=== PATIENT | female | born 1945 | race Caucasian/White ===

== ENCOUNTER 2020-11-08 20:25 | Observation (INO) ==
--- NOTE | 2020-11-08 21:35 | XRay Report ---
XR chest 1V portable CLINICAL HISTORY: Chest Pain COMPARISON STUDY: Chest radiograph January 18, 2019. FINDINGS: Bilateral shoulder arthroplasties are incidentally noted. There is no pneumothorax or pleur al effusion. Right hilar prominence is unchanged. Cardiac size is normal. There is no evidence for pu lmonary edema. There is no consolidation to suggest pneumonia. IMPRESSION: No acute cardiopulmonary findings. ACT 112: Negative or not required by law. Electronically signed by: Kade Shearer M.D. 11/08/2020 9:34 PM
[2020-11-08 21:41] LABS: Basophils # (auto) 0.02 K/uL (0-0.2); Basophils % (auto) 0.2 %; Eosinophils # (auto) 0.11 K/uL (0-0.5); Eosinophils % (auto) 0.9 %; Hematocrit (blood only) 40.2 % (37-47); Hemoglobin 13.3 g/dL (12.0-16.0); Immature Granulocytes # (auto) 0.02 K/uL (0.00-0.02); Immature Granulocytes % (auto) 0.2 %; Lymphocytes # (auto) 1.95 K/uL (1.2-3.4); Lymphocytes % (auto) 16.4 %; Mean Corpuscular Hemoglobin 29.6 pg (25-34); Mean Corpuscular Hgb Conc 33.1 g/dL (32-36); Mean Corpuscular Volume 89.5 fL (80-100); Mean Platelet Volume 10.1 fL (7.4-10.4); Monocytes # (auto) 0.58 K/uL (0.11-0.59); Monocytes % (auto) 4.9 %; Neutrophils % (auto) 77.4 %; Platelet Count 258 K/uL (130-400); RDW Coefficient of Variation 13.2 % (11.5-14.5); RDW Standard Deviation 42.9 fL (36.4-46.3); Red Blood Count 4.49 M/uL (4.2-5.4); White Blood Count 11.88 K/uL (4.8-10.8)
[2020-11-08 21:54] LABS: Partial Thromboplastin Time 25.2 Seconds (21.0-31.0); Prothrombin Time 9.9 Seconds (9.0-12.0)
[2020-11-08 22:02] LABS: Alanine Aminotransferase 17 U/L (12-78); Albumin Level 3.5 gm/dl (3.4-5.0); Aspartate Aminotransferase 16 U/L (15-37); BUN Creatinine Ratio 12.5 (10-20); Blood Urea Nitrogen 13 mg/dl (7-18); Calcium 9.1 mg/dl (8.5-10.1); Carbon Dioxide 28 mmol/L (21-32); Chloride 109 mmol/L (98-107); Creatinine Clr Calc Pharmacy 55.2 ml/min; Est GFR (African American) 62.6 ml/min; Glucose 128 mg/dl (70-99); Sodium 141 mmol/L (136-145)
[2020-11-08 22:04] LABS: Albumin Globulin Ratio 0.8 (0.9-2); Alkaline Phosphatase 161 U/L (45-117); Bilirubin,Total 0.4 mg/dl (0.2-1); Globulin 4.2 gm/dl (2.5-4.0); Total Protein 7.7 gm/dl (6.4-8.2); Troponin I < 0.015 ng/ml (0-0.045)
--- NOTE | 2020-11-08 22:46 | Emergency Department Note ---
Impression & Plan Chest pain ED Provider Note INFORMANT: Patient ED PROVIDER(S): Azael Jorge MD CHIEF COMPLAINT: Chest pain PLAN: Disposition: Admitted Condition: Good Outpatient prescription management: none Referral: None MEDICAL DECISION MAKING: Patient presented to hospital complaining of chest pain. She has a history of Takotsubo cardiomyopathy. The patient had significant stress today with the of her . Her ECG did not show any acute ischemic findings. She has an old left bundle branch block. The patient did have a slight leukocytosis. She has no abdominal symptoms. Chest x-ray was unremarkable. The patient was given Nitropaste. She was also very anxious and was given a dose of Ativan. I discussed further management in the hospital. Patient was in agreement. Consultation was made with Dr. Sigifredo Rossi, [facility] hospitalist service. Patient was evaluated in the ER for further management. Triage Nursing notes reviewed and agree them. Vital Signs: reviewed and remarkable for hypertension Differential diagnosis: Cardiac ischemia, aortic dissection, pulmonary embolism, pneumothorax, pneumonia, pericarditis, myocarditis, esophageal rupture, GERD, cholecystitis, pancreatitis, musculoskeletal, as well as other pathologies. Diagnostics interpreted by me: ECG: Twelve-lead ECG reveals a normal sinus rhythm at 86 bpm. Left bundle branch block. No ST elevation or depression to suggest acute ischemic change. When compared to prior study of the aorta branch block is old. Cardiac Monitoring: Cardiac monitoring ordered by me: The patient was placed on continuous cardiac monitoring and observed. It revealed a normal sinus rhythm at 82 beats per minute without ectopy or evidence of dysrhythmia. Imaging studies: Chest x-ray. Findings: A chest x-ray was performed and revealed no pneumothorax, effusion, infiltrate, pulmonary edema, free air under the diaphragm, or wide mediastinum. Impression: No acute disease. HPI: The patient is a 75 year old female who presents to the Emergency Room with complaints of midsternal chest pain. This started at 1930 and is somewhat improved. The patient also notes the following associated symptoms, stress, anxious. The patient has taken no medications for relieving factors. Current pain is rated as 4/10. Pt denies LOC, headache, fevers, chills, diaphoresis, visual changes, neck pain, breathing difficulties, nausea, vomiting, abdominal pain, back pain, melena, hematochezia, urinary symptoms, numbness, weakness, lymphadenopathy, rash, or other complaints. ROS: See above HPI for pertinent positives & negatives. A total of 10 systems reviewed and were otherwise negative. PAST MEDICAL HISTORY:See Below , Cardiomyopathy PAST SURGICAL HISTORY:See Below, FAMILY HISTORY:See Below SOCIAL HISTORY:See Below, HOME MEDICATIONS:See Below ALLERGIES:See Below VITALS:See Below PHYSICAL EXAMINATION: GENERAL: Awake, alert, well-appearing, in no distress HENT: Normocephalic, atraumatic. Oropharynx unremarkable. EYES: Normal conjunctiva. Sclera non-icteric. NECK: Inspection normal. Non-tender. Supple. No nuchal rigidity. FROM. No masses. RESPIRATORY: Clear to auscultation. No wheezes. No rales. Normal respiratory effort. CARDIAC: Normal rate. Normal rhythm. No murmurs. No rubs. Extremities warm and well perfused. Pulses equal. No JVD. GI: Soft, non-distended. No tenderness to palpation. No rebound or guarding. No masses. RECTAL: Deferred. MUSCULOSKELETAL: Atraumatic. Chest examination reveals no tenderness. The back is symmetrical on inspection without obvious abnormality. There is no CVA tenderness to palpation. No joint edema. LOWER EXTREMITIES: Calves are equal size bilaterally and non-tender. No edema. No discoloration. NEURO: Normal sensorium. No sensory or motor deficits noted. SKIN: No rash or jaundice noted. Azael Jorge MD Past Med/Surg History Medical History (Updated 11/08/20 @ 22:46 by Azael Jorge MD) Amputation finger LEFT INDEX CHF (congestive heart failure) COPD (chronic obstructive pulmonary disease) Diverticulosis GERD (gastroesophageal reflux disease) Gout Hearing deficit Hypertension Kidney stones Osteoarthritis Poor historian Pulmonary hypertension Sleep apnea CPAP Takotsubo syndrome Surgical History History of ankle surgery RT History of cardiac cath 2007- [facility] - CP, SOB - NO STENTS/ANGIOPLASTY - FOLLOWS W/ DR. SLATER History of hand surgery History of tonsillectomy and adenoidectomy History of total knee replacement RT History of total shoulder replacement BL Family History Father Family history of diabetes mellitus Grandmother Family history of diabetes mellitus Social History Smoking Status: Never smoker Second Hand Exposure: Yes (OCCASIONALLY - DTR SMOKES (ALSO EXPOSED A CHILD)); Hx Alcohol Use: Yes Alcohol type: wine Hx Substance Use: No Preferred Language: Divehi Communication Ability: Effective Beliefs That Will Affect Care: None Current Living Situation: Spouse and Family Feels Safe at Home: Yes Allergies Allergies Allergy/AdvReac Type Severity Reaction Status Date / Time blue dye Allergy Unknown itchy;swoll Verified 02/07/20 13:41 en chlorhexidine Allergy Unknown ITCHINESS Verified 02/07/20 13:41 Penicillins Allergy Unknown HIVES Verified 02/07/20 13:41 Home Meds Home Medications Medication Instructions Recorded Confirmed allopurinol 300 mg tablet 300 mg PO DAILY 01/19/18 02/07/20 alprazolam 0.25 mg tablet 0.25 mg PO TID 01/19/18 02/07/20 aspirin 81 mg tablet,delayed 81 mg PO DAILY 01/19/18 02/07/20 release calcium polycarbophil 625 mg 4 tab PO QID 01/19/18 02/07/20 tablet (Fiber-Tabs) carvedilol 12.5 mg tablet 12.5 mg PO BID 01/19/18 02/07/20 furosemide 40 mg tablet 40 mg PO BID 01/19/18 02/07/20 gabapentin 600 mg tablet 600 mg PO BID 01/19/18 02/07/20 lisinopril 2.5 mg tablet 2.5 mg PO DAILY 01/19/18 02/07/20 loperamide 2 mg capsule (Imodium 0.5 tab PO Q3H PRN 01/19/18 02/07/20 A-D) mirtazapine 30 mg tablet 30 mg PO HS 01/19/18 02/07/20 potassium chloride 10 mEq 20 meq PO BID 01/19/18 02/07/20 tablet,extended release ranitidine HCl 300 mg tablet 300 mg PO BID 01/19/18 02/07/20 spironolactone 25 mg tablet 25 mg PO DAILY 01/19/18 02/07/20 venlafaxine 75 mg capsule,extended 75 mg PO DAILY 01/19/18 02/07/20 release 24 hr Previous Rx's Medication Instructions Recorded hydrocodone 5 mg-acetaminophen 300 1 tab PO Q8H PRN #7 tab 01/18/19 mg tablet (Vicodin) Results & Data (ED) Vital Signs Vital Signs - 24 hr 11/08/20 20:27 11/08/20 22:28 11/08/20 23:00 Temperature 36.6 C Temperature Source Temporal Artery Scan Pulse Rate 85 Pulse Rate [Right Finger] 82 Pulse Rhythm Regular Pulse Strength Normal Respiratory Rate 20 20 Respiratory Effort / Characteristics Non-Labored Spontaneous Non-Labored Spontaneous Respiratory Depth Normal Normal Respiratory Pattern Regular Blood Pressure 188/84 H Blood Pressure [Right Arm] 165/80 H Blood Pressure Mean 118 Blood Pressure Mean [Right Arm] 108 Blood Pressure Position Sitting Blood Pressure Position [Right Arm] Sitting Pulse Oximetry 95 97 Oxygen Delivery Method Room Air Room Air Room Air Sepsis Recent Fever Within 48 Hours No Sepsis New/Unexplained Change in Mental Status No Sepsis Action Taken by Nursing No Action Required Laboratory Data Result diagrams: 11/08/20 21:25 11/08/20 21:25 Lab Results 11/08/20 11/08/20 11/08/20 Range/Units 21:25 21:25 21:25 WBC 11.88 H (4.8-10.8) K/uL RBC 4.49 (4.2-5.4) M/uL Hgb 13.3 (12.0-16.0) g/dL Hct 40.2 (37-47) % MCV 89.5 (80-100) fL MCH 29.6 (25-34) pg MCHC 33.1 (32-36) g/dL RDW Std Deviation 42.9 (36.4-46.3) fL RDW Coeff of Marj 13.2 (11.5-14.5) % Plt Count 258 (130-400) K/uL MPV 10.1 (7.4-10.4) fL Immature Gran % (Auto) 0.2 % Neut % (Auto) 77.4 % Lymph % (Auto) 16.4 % [place] % (Auto) 4.9 % Eos % (Auto) 0.9 % Baso % (Auto) 0.2 % Neut # (Auto) 9.20 H (1.4-6.5) K/uL Lymph # (Auto) 1.95 (1.2-3.4) K/uL [place] # (Auto) 0.58 (0.11-0.59) K/uL Eos # (Auto) 0.11 (0-0.5) K/uL Baso # (Auto) 0.02 (0-0.2) K/uL Immature Gran # (Auto) 0.02 (0.00-0.02) K/uL PT 9.9 (9.0-12.0) Seconds INR 1.0 (0.9-1.1) APTT 25.2 (21.0-31.0) Seconds PTT Ratio 1.0 Sodium 141 (136-145) mmol/L Potassium 4.0 (3.5-5.1) mmol/L Chloride 109 H (98-107) mmol/L Carbon Dioxide 28 (21-32) mmol/L Anion Gap 4.0 (3-11) BUN 13 (7-18) mg/dl Creatinine 1.01 (0.6-1.2) mg/dl Est Cr Clr Drug Dosing 55.2 ml/min Est GFR ( Amer) 62.6 ml/min Est GFR (Non-Af Amer) 54.0 ml/min BUN/Creatinine Ratio 12.5 (10-20) Glucose 128 H (70-99) mg/dl Calcium 9.1 (8.5-10.1) mg/dl Magnesium 2.2 (1.8-2.4) mg/dl Total Bilirubin 0.4 (0.2-1) mg/dl AST 16 (15-37) U/L ALT 17 (12-78) U/L Alkaline Phosphatase 161 H (45-117) U/L Troponin I < 0.015 (0-0.045) ng/ml Total Protein 7.7 (6.4-8.2) gm/dl Albumin 3.5 (3.4-5.0) gm/dl Globulin 4.2 H (2.5-4.0) gm/dl Albumin/Globulin Ratio 0.8 L (0.9-2) Lipase 195 (73-393) U/L Specimen Hemolysis COVID-19 Eval Order SARS-CoV-2 (PCR) (Negative) 11/08/20 11/08/20 Range/Units 22:58 22:58 WBC (4.8-10.8) K/uL RBC (4.2-5.4) M/uL Hgb (12.0-16.0) g/dL Hct (37-47) % MCV (80-100) fL MCH (25-34) pg MCHC (32-36) g/dL RDW Std Deviation (36.4-46.3) fL RDW Coeff of Marj (11.5-14.5) % Plt Count (130-400) K/uL MPV (7.4-10.4) fL Immature Gran % (Auto) % Neut % (Auto) % Lymph % (Auto) % [place] % (Auto) % Eos % (Auto) % Baso % (Auto) % Neut # (Auto) (1.4-6.5) K/uL Lymph # (Auto) (1.2-3.4) K/uL [place] # (Auto) (0.11-0.59) K/uL Eos # (Auto) (0-0.5) K/uL Baso # (Auto) (0-0.2) K/uL Immature Gran # (Auto) (0.00-0.02) K/uL PT (9.0-12.0) Seconds INR (0.9-1.1) APTT (21.0-31.0) Seconds PTT Ratio Sodium (136-145) mmol/L Potassium (3.5-5.1) mmol/L Chloride (98-107) mmol/L Carbon Dioxide (21-32) mmol/L Anion Gap (3-11) BUN (7-18) mg/dl Creatinine (0.6-1.2) mg/dl Est Cr Clr Drug Dosing ml/min Est GFR ( Amer) ml/min Est GFR (Non-Af Amer) ml/min BUN/Creatinine Ratio (10-20) Glucose (70-99) mg/dl Calcium (8.5-10.1) mg/dl Magnesium (1.8-2.4) mg/dl Total Bilirubin (0.2-1) mg/dl AST (15-37) U/L ALT (12-78) U/L Alkaline Phosphatase (45-117) U/L Troponin I (0-0.045) ng/ml Total Protein (6.4-8.2) gm/dl Albumin (3.4-5.0) gm/dl Globulin (2.5-4.0) gm/dl Albumin/Globulin Ratio (0.9-2) Lipase (73-393) U/L Specimen Hemolysis COVID-19 Eval Order Covid19 at [facility] SARS-CoV-2 (PCR) NEGATIVE (Negative) Administered Medications Discontinued Medications Lorazepam (Lorazepam 0.5 Mg Tab) 0.5 mg PO NOW STA Stop: 11/08/20 22:48 Last Admin: 11/08/20 22:57 Dose: 0.5 mg Documented by: [id number] Nitroglycerin (Nitroglycerin 2% Ointment 30gm Tube) 0.5 inch EXT NOW STA Stop: 11/08/20 22:48 Last Admin: 11/08/20 22:57 Dose: 0.5 inch Documented by: [id number] Imaging Data Radiologist's Impression: Chest X-Ray 11/08/20 20:36 XR chest 1V portable CLINICAL HISTORY: Chest Pain COMPARISON STUDY: Chest radiograph January 18, 2019. FINDINGS: Bilateral shoulder arthroplasties are incidentally noted. There is no pneumothorax or pleural effusion. Right hilar prominence is unchanged. Cardiac size is normal. There is no evidence for pulmonary edema. There is no consolidation to suggest pneumonia. IMPRESSION: No acute cardiopulmonary findings. ACT 112: Negative or not required by law. Electronically signed by: Kade Shearer M.D. 11/08/2020 9:34 PM Discharge Plan Visit Data Chief Complaint: Chest Pain Stated Complaint: TIGHTNESS IN CHEST ED Provider: Azael Jorge Discharge Problem: Chest pain Forms Stand Alone Forms: My [facility] Prescriptions Prescriptions: No Action furosemide 40 mg Tablet 40 mg PO BID RF: 0 venlafaxine 75 mg Capsule,Extended Release 24hr 75 mg PO DAILY RF: 0 gabapentin 600 mg Tablet 600 mg PO BID RF: 0 carvedilol 12.5 mg Tablet 12.5 mg PO BID RF: 0 ranitidine HCl 300 mg Tablet 300 mg PO BID RF: 0 potassium chloride 10 mEq Tablet Extended Release 20 meq PO BID RF: 0 aspirin 81 mg Tablet,Delayed Release (Dr/Ec) 81 mg PO DAILY RF: 0 spironolactone 25 mg Tablet 25 mg PO DAILY RF: 0 alprazolam 0.25 mg Tablet 0.25 mg PO TID RF: 0 mirtazapine 30 mg Tablet 30 mg PO HS RF: 0 calcium polycarbophil [Fiber-Tabs] 625 mg Tablet 4 tab PO QID RF: 0 allopurinol 300 mg Tablet 300 mg PO DAILY RF: 0 lisinopril 2.5 mg Tablet 2.5 mg PO DAILY RF: 0 loperamide [Imodium A-D] 2 mg Capsule 0.5 tab PO Q3H PRN (Reason: Diarrhea) RF: 0 hydrocodone-acetaminophen [Vicodin] 5-300 mg tablet 1 tab PO Q8H PRN (Reason: pain) Qty: 7 RF: 0 Referrals Referrals: Bradley Ruiz MD [Primary Care Provider] -
[2020-11-08] MEDS ORDERED: NITROGLYCERIN 2% OINTMENT 30GM TUBE EXT STA (22:47)
[2020-11-08] MEDS ORDERED: LORazepam 0.5 MG TAB PO STA (22:47)
[2020-11-08 23:35] LABS: Lipase 195 U/L (73-393); Magnesium 2.2 mg/dl (1.8-2.4)
[2020-11-09] MEDS ORDERED: carvediloL 12.5 MG TAB PO ONE (00:07)
[2020-11-09] MEDS ORDERED: lisinopril 5 MG TAB PO ONE (00:07)
--- NOTE | 2020-11-09 00:08 | History & Physical Report ---
Date of Service November 09, 2020 Assessment & Plan (1) Chest pain: Plan: Multifactorial : Uncontrolled hypertension secondary to missed medications, anxiety given recent family Musculoskeletal component given reproducibility Rule out ACS given nitro relief chronic diastolic heart failure (EF 55 to 59%, TTE 2018), euvolemic history Takotsubo cardiomyopathy as per records chronic LBBB hyperlipidemia on statin Rx prediabetes, hemoglobin A1c of 6.24 June 2020 OBS PCU Analgesia, anxiolytic as needed Facilitate home BP meds, may need dose titration Follow troponin TTE, Cardiology consult RE chest pain DVT prophylaxis per Lovenox subcu Full code Patient daughter requesting updates from providers. Ms. Luann Ambrosio, contact #[phone]. Text document was generated using [employer] voice recognition software. It may contain grammatical or spelling errors. Kindly contact undersigned for clarification of any documentation item in question. History of Present Illness Chief Complaint: Chest tightness Primary Care Provider: Bradley Ruiz MD History obtained from patient, family, and records. Medical history significant for chronic diastolic heart failure (EF 55 to 59%, TTE 2018), history Takotsubo cardiomyopathy as per records, chronic LBBB, hypertension, hyperlipidemia, prediabetes, ANAYA on CPAP. Last confinement August 2015 under Orthopedics service for elective right total shoulder arthroplasty. Patient noted substernal chest tightness without radiation or other symptoms around dinnertime today. Stressful day with patient 's demise at the hospital yesterday morning. Patient unable to take her home medications because she was not feeling well. No headache symptoms. No unusual fluid retention. Usual blood pressure controlled at home. Noncompliant with CPAP of late because patient's could not sleep when CPAP is on. Chest pain relieved by Nitropaste and Ativan administered at the ER. Medical History as above Surgical History : Knee surgery, breast biopsy, shoulder surgeries Family History : DM, heart disease Personal/Social history : Non-smoker, occasional EtOH intake, retired pick pack worker Allergies Allergy/AdvReac Type Severity Reaction Status Date / Time blue dye Allergy Unknown itchy;swoll Verified 02/07/20 13:41 en chlorhexidine Allergy Unknown ITCHINESS Verified 02/07/20 13:41 Penicillins Allergy Unknown HIVES Verified 02/07/20 13:41 Home Medications Medication Instructions Recorded Confirmed Type allopurinol 300 mg tablet 300 mg PO DAILY 01/19/18 11/09/20 History alprazolam 0.25 mg tablet 0.25 mg PO TID PRN 01/19/18 11/09/20 History aspirin 81 mg tablet,delayed 81 mg PO DAILY 01/19/18 11/09/20 History release carvedilol 12.5 mg tablet 12.5 mg PO BID 01/19/18 11/09/20 History furosemide 40 mg tablet 40 mg PO BID 01/19/18 11/09/20 History gabapentin 600 mg tablet 600 mg PO BID 01/19/18 11/09/20 History lisinopril 2.5 mg tablet 2.5 mg PO DAILY 01/19/18 11/09/20 History loperamide 2 mg capsule (Imodium 0.5 tab PO Q3H PRN 01/19/18 11/09/20 History A-D) mirtazapine 30 mg tablet 30 mg PO HS 01/19/18 11/09/20 History potassium chloride 10 mEq 20 meq PO BID 01/19/18 11/09/20 History tablet,extended release spironolactone 25 mg tablet 25 mg PO DAILY 01/19/18 11/09/20 History venlafaxine 75 mg capsule,extended 150 mg PO DAILY 01/19/18 11/09/20 History release 24 hr famotidine 40 mg PO BID 11/09/20 11/09/20 History Past Med/Surg History Medical History (Updated 11/08/20 @ 22:46 by Azael Jorge MD) Amputation finger LEFT INDEX CHF (congestive heart failure) COPD (chronic obstructive pulmonary disease) Diverticulosis GERD (gastroesophageal reflux disease) Gout Hearing deficit Hypertension Kidney stones Osteoarthritis Poor historian Pulmonary hypertension Sleep apnea CPAP Takotsubo syndrome Surgical History History of ankle surgery RT History of cardiac cath 2007- [facility] - CP, SOB - NO STENTS/ANGIOPLASTY - FOLLOWS W/ DR. SLATER History of hand surgery History of tonsillectomy and adenoidectomy History of total knee replacement RT History of total shoulder replacement BL Family History Father Family history of diabetes mellitus Grandmother Family history of diabetes mellitus Social History Smoking Status: Unknown if ever smoked Second Hand Exposure: Yes (OCCASIONALLY - DTR SMOKES (ALSO EXPOSED A CHILD)); Hx Alcohol Use: No Hx Substance Use: No Preferred Language: Maltese Communication Ability: Effective [employer]ian [employer] Officer Required: No Beliefs That Will Affect Care: None Current Living Situation: Alone Other Information That Helps Us Care for You: No Feels Safe at Home: Yes Safety Concerns: Feels Safe At This Time Assistive Devices: None Review of Systems Review of Systems: As per HPI, all 10 systems reviewed, all other ROS negative Physical Exam Physical Exam: GENERAL: Comfortable, slightly anxious, obese, slightly hard of hearing, no res piratory distress SKIN: Normal color, warm HEENT: [place] palpebral conjunctivae, no ptosis, moist buccal mucosa NECK : Supple, short neck, no tenderness CHEST : CTA, anterior chest wall tenderness HEART : RRR, no obvious murmurs ABDOMEN: Some distention, nontender EXTREMITIES : Minimal LE swelling, no LE tenderness, no other conspicuous deformities noted NEUROLOGIC : Coherent, no facial asymmetry, slightly hard of hearing, no other gross focality Results & Data Results & Data ([facility]) Vital Signs (Past 12 Hours) Vital Signs Temp Pulse Pulse Resp BP BP Pulse Ox 11/08/20 23:00 82 20 165/80 H 97 11/08/20 20:27 36.6 C 85 20 188/84 H 95 Laboratory Results Laboratory Results WBC 11.88 K/uL (4.8-10.8) H 11/08/20 21:25 RBC 4.49 M/uL (4.2-5.4) 11/08/20 21:25 Hgb 13.3 g/dL (12.0-16.0) 11/08/20 21:25 Hct 40.2 % (37-47) 11/08/20 21:25 MCV 89.5 fL (80-100) 11/08/20 21:25 MCH 29.6 pg (25-34) 11/08/20 21:25 MCHC 33.1 g/dL (32-36) 11/08/20 21:25 RDW Std Deviation 42.9 fL (36.4-46.3) 11/08/20 21:25 RDW Coeff of Marj 13.2 % (11.5-14.5) 11/08/20 21:25 Plt Count 258 K/uL (130-400) 11/08/20 21:25 MPV 10.1 fL (7.4-10.4) 11/08/20 21:25 Immature Gran % (Auto) 0.2 % 11/08/20: Neut % (Auto) 77.4 % 11/08/20 21: Lymph % (Auto) 16.4 % 11/08/20 21: [place] % (Auto) 4.9 % 11/08/20 21: Eos % (Auto) 0.9 % 11/08/20 21:25 Baso % (Auto) 0.2 % 11/08/20: Neut # (Auto) 9.20 K/uL (1.4-6.5) H 11/08/20: Lymph # (Auto) 1.95 K/uL (1.2-3.4) 11/08/20: [place] # (Auto) 0.58 K/uL (0.11-0.59) 11/08/20: Eos # (Auto) 0.11 K/uL (0-0.5) 11/08/20: Baso # (Auto) 0.02 K/uL (0-0.2) 11/08/20: Immature Gran # (Auto) 0.02 K/uL (0.00-0.02) 11/08/20: PT 9.9 Seconds (9.0-12.0) 11/08/20: INR 1.0 (0.9-1.1) 11/08/20: APTT 25.2 Seconds (21.0-31.0) 11/08/20: PTT Ratio 1.0 11/08/20 21: Sodium 141 mmol/L (136-145) 11/08/20 21:25 Potassium 4.0 mmol/L (3.5-5.1) 11/08/20: Chloride 109 mmol/L (98-107) H 11/08/20 21:25 Carbon Dioxide 28 mmol/L (21-32) 11/08/20 21: Anion Gap 4.0 (3-11) 11/08/20 21:25 BUN 13 mg/dl (7-18) 07/16/21 21:25 Creatinine 1.01 mg/dl (0.6-1.2) 11/08/20 21:25 Est Cr Clr Drug Dosing 55.2 ml/min 11/08/20 21:25 Est GFR ( Amer) 62.6 ml/min 11/08/20 21:25 Est GFR (Non-Af Amer) 54.0 ml/min 11/08/20 21:25 BUN/Creatinine Ratio 12.5 (10-20) 11/08/20 21:25 Glucose 128 mg/dl (70-99) H 11/08/20 21:25 Calcium 9.1 mg/dl (8.5-10.1) 11/08/20 21:25 Magnesium 2.2 mg/dl (1.8-2.4) 11/08/20 21:25 Total Bilirubin 0.4 mg/dl (0.2-1) 11/08/20 21:25 AST 16 U/L (15-37) 11/08/20 21:25 ALT 17 U/L (12-78) 11/08/20 21:25 Alkaline Phosphatase 161 U/L (45-117) H 11/08/20 21:25 Troponin I < 0.015 ng/ml (0-0.045) 11/08/20 21:25 Total Protein 7.7 gm/dl (6.4-8.2) 11/08/20 21:25 Albumin 3.5 gm/dl (3.4-5.0) 11/08/20 21:25 Globulin 4.2 gm/dl (2.5-4.0) H 11/08/20 21:25 Albumin/Globulin Ratio 0.8 (0.9-2) L 11/08/20 21:25 Lipase 195 U/L (73-393) 11/08/20 21:25 Specimen Hemolysis 11/08/20 21:25 COVID-19 Eval Order Covid19 at [facility] 11/08/20 22:58 Impressions Chest X-Ray 11/08/20 20:36 XR chest 1V portable CLINICAL HISTORY: Chest Pain COMPARISON STUDY: Chest radiograph January 18, 2019. FINDINGS: Bilateral shoulder arthroplasties are incidentally noted. There is no pneumothorax or pleural effusion. Right hilar prominence is unchanged. Cardiac size is normal. There is no evidence for pulmonary edema. There is no consolidation to suggest pneumonia. IMPRESSION: No acute cardiopulmonary findings. ACT 112: Negative or not required by law. Electronically signed by: Kade Shearer M.D. 11/08/2020 9:34 PM Diagnostic Findings EKG as per my interpretation : Rate 85, NSR, LAD, LAFB, LBBB
[2020-11-09] MEDS ORDERED: ASPIRIN 81 MG ECTAB PO STA (00:09)
[2020-11-09] MEDS ORDERED: traMADol HCL 50 MG TABLET PO PRN (01:25)
[2020-11-09] MEDS ORDERED: MoRPHine SULFATE 4 MG/ML 1 ML CARP\\VIAL IV PRN (01:25)
[2020-11-09] MEDS ORDERED: LORazepam 0.25 MG/0.5 ML VIAL IV PRN (01:25)
[2020-11-09] MEDS ORDERED: NITROGLYCERIN SL 0.4 MG/TAB TAB SL PRN (01:25)
[2020-11-09] MEDS ORDERED: PROMETHAZINE HCL 12.5 MG in SODIUM CHLORIDE 0.9% 50 ML IV PRN (01:25)
[2020-11-09] MEDS ORDERED: ACETAMINOPHEN 325 MG TAB PO PRN (01:25)
[2020-11-09] MEDS ORDERED: MIRTAZAPINE TAB 15 MG TAB PO SCH (02:30)
[2020-11-09] MEDS ORDERED: ALPRAZolam 0.25 MG TABLET PO PRN (02:31)
[2020-11-09 06:35] LABS: Basophils # (auto) 0.01 K/uL (0-0.2); Basophils % (auto) 0.1 %; Eosinophils % (auto) 1.3 %; Hematocrit (blood only) 36.1 % (37-47); Hemoglobin 11.8 g/dL (12.0-16.0); Immature Granulocytes # (auto) 0.01 K/uL (0.00-0.02); Immature Granulocytes % (auto) 0.1 %; Lymphocytes # (auto) 1.52 K/uL (1.2-3.4); Lymphocytes % (auto) 19.4 %; Mean Corpuscular Hemoglobin 29.9 pg (25-34); Mean Corpuscular Hgb Conc 32.7 g/dL (32-36); Mean Corpuscular Volume 91.4 fL (80-100); Mean Platelet Volume 9.8 fL (7.4-10.4); Monocytes # (auto) 0.27 K/uL (0.11-0.59); Monocytes % (auto) 3.5 %; Neutrophils # (auto) 5.91 K/uL (1.4-6.5); Neutrophils % (auto) 75.6 %; Platelet Count 208 K/uL (130-400); RDW Coefficient of Variation 13.2 % (11.5-14.5); RDW Standard Deviation 44.5 fL (36.4-46.3); Red Blood Count 3.95 M/uL (4.2-5.4); White Blood Count 7.82 K/uL (4.8-10.8)
[2020-11-09 06:49] LABS: Partial Thromboplastin Ratio 0.9; Partial Thromboplastin Time 24.5 Seconds (21.0-31.0)
[2020-11-09 07:04] LABS: BUN Creatinine Ratio 11.9 (10-20); Creatinine Clr Calc Pharmacy 67.3 ml/min; Est GFR (African American) 79.4 ml/min; Est GFR (Non-African American) 68.5 ml/min; Potassium 3.7 mmol/L (3.5-5.1)
--- NOTE | 2020-11-09 08:48 | Cardiology Consultation ---
Date of Consultation November 09, 2020 Assessment & Plan (1) Chest pain: Patient feels improved. She notes that she understandably felt a lot of stress yesterday. Serial troponin I levels have been undetectable, her left bundle branch block is chronic, and echocardiogram performed earlier today reveals stable findings of mildly abnormal septal motion consistent with left bundle branch block with normal LV wall motion otherwise. I believe the her work-up is very reassuring. Patient feels ready to be discharged and I think this can be performed without the need for stress testing at present. History of Present Illness Reason for Consultation: Chest pain Requesting Physician: Dr Rossi Attending Physician: Sonido Boucher MD History of Present Illness Jaycee Ambrosio is a 75-year-old female seen in cardiology consultation per the request of Dr. Rossi for the evaluation of chest discomfort. She follows with our cardiology practice as an outpatient due to her history of Takosubo syndrome and chronic left bundle branch block. Her most recent outpatient visit had been in December, at which time stable cardiac signs and symptoms were noted. She presented via the emergency room yesterday with chest discomfort, with her having just yesterday morning after a long illness. She had chest discomfort with her evening meal that has since resolved. Troponin I levels have been undetectable x3 thus far. EKG on presentation revealed sinus rhythm with left bundle branch block. T wave changes in the lateral precordial leads are slightly more prominent compared to the previous tracing dating back to 2018. Past Medical/Surgical History: 1.Admission to [facility] in October 2007 secondary to chest discomfort and dyspnea. 1.Elevated cardiac enzymes and a left bundle branch block lead to cardiac catheterization which revealed elevated left and right heart pressures without obstructive CAD. 2.Echocardiography revealed apical expansion with left ventricular ejection fraction of 35% reflecting underlying cardiomyopathy - pattern of Takotsubo Syndrome. 3.Follow-up echocardiograms have revealed normal LVEF 2.Chronic left bundle branch block 3.Chronic diastolic heart failure. 4.Hypertension 5.Chronic sleep apnea 6.COPD with past secondary hand smoke exposure 7.Chronic kidney disease, stage III. 8.Gastroesophageal reflux 9.Irritable bowel syndrome 10.Diverticulosis of the colon 11.Neuralgia. Neuropathy, on gabapentin. 12.Osteoarthritis s/p left shoulder replacement in November 2011, right total knee replacement by Dr. Braun on 05/25/2014. 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 -Her most recent outpatient echocardiogram had been in 2018 with abnormal septal motion consistent with underlying left bundle branch block, grade 1 diastolic dysfunction, normal LVEF, 55 to 59%. Allergies Allergy/AdvReac Type Severity Reaction Status Date / Time blue dye Allergy Unknown itchy;swoll Verified 02/07/20 13:41 en chlorhexidine Allergy Unknown ITCHINESS Verified 02/07/20 13:41 Penicillins Allergy Unknown HIVES Verified 02/07/20 13:41 Home Medications Medication Instructions Recorded Confirmed Type allopurinol 300 mg tablet 300 mg PO DAILY 01/19/18 11/09/20 History alprazolam 0.25 mg tablet 0.25 mg PO TID PRN 01/19/18 11/09/20 History aspirin 81 mg tablet,delayed 81 mg PO DAILY 01/19/18 11/09/20 History release carvedilol 12.5 mg tablet 12.5 mg PO BID 01/19/18 11/09/20 History furosemide 40 mg tablet 40 mg PO BID 01/19/18 11/09/20 History gabapentin 600 mg tablet 600 mg PO BID 01/19/18 11/09/20 History lisinopril 2.5 mg tablet 2.5 mg PO DAILY 01/19/18 11/09/20 History loperamide 2 mg capsule (Imodium 0.5 tab PO Q3H PRN 01/19/18 11/09/20 History A-D) mirtazapine 30 mg tablet 30 mg PO HS 01/19/18 11/09/20 History potassium chloride 10 mEq 20 meq PO BID 01/19/18 11/09/20 History tablet,extended release spironolactone 25 mg tablet 25 mg PO DAILY 01/19/18 11/09/20 History venlafaxine 75 mg capsule,extended 150 mg PO DAILY 01/19/18 11/09/20 History release 24 hr famotidine 40 mg PO BID 11/09/20 11/09/20 History Patient History Medical History (Updated 11/08/20 @ 22:46 by Azael Jorge MD) Amputation finger LEFT INDEX CHF (congestive heart failure) COPD (chronic obstructive pulmonary disease) Diverticulosis GERD (gastroesophageal reflux disease) Gout Hearing deficit Hypertension Kidney stones Osteoarthritis Poor historian Pulmonary hypertension Sleep apnea CPAP Takotsubo syndrome Surgical History History of ankle surgery RT History of cardiac cath 2008- [facility] - CP, SOB - NO STENTS/ANGIOPLASTY - FOLLOWS W/ DR. SLATER History of hand surgery History of tonsillectomy and adenoidectomy History of total knee replacement RT History of total shoulder replacement BL Family History Father Family history of diabetes mellitus Grandmother Family history of diabetes mellitus Social History Smoking Status: Unknown if ever smoked Second Hand Exposure: Yes (OCCASIONALLY - DTR SMOKES (ALSO EXPOSED A CHILD)); Hx Alcohol Use: No Hx Substance Use: No Preferred Language: Belizean Communication Ability: Effective Mechanics Supervisor Required: No Beliefs That Will Affect Care: None Current Living Situation: Alone Other Information That Helps Us Care for You: No Feels Safe at Home: Yes Safety Concerns: Feels Safe At This Time Assistive Devices: None Review of Systems Review of Systems: All systems reviewed & are unremarkable except as noted in HPI & below Physical Exam Physical Exam: Temp Pulse Resp BP Pulse Ox 36.8 C 65 18 112/67 95 11/09/20 11:01 11/09/20 11:01 11/09/20 11:01 11/09/20 11:01 11/09/20 11:01 Constitutional: WD/WN, vitals as above Respiratory: normal respiratory effort, lungs clear to auscultation Cardiovascular: RRR, no murmur, no edema Gastrointestinal (Abdomen): normal bowel sounds, soft, nontender, no hepatosplenomegaly Neurologic: PERRL, EOMI, accommodation nl, no face palsy, no dysarthria Results & Data ([facility]) Vital Signs (Past 12 Hours) Vital Signs Temp Pulse Resp BP BP Pulse Ox 11/09/20 07:23 36.8 C 82 17 132/75 94 11/09/20 04:49 36.7 C 71 16 126/67 96 11/09/20 01:22 37.1 C 82 16 137/76 96 11/09/20 00:30 85 20 145/73 H 97 11/08/20 23:00 82 20 165/80 H 97 Laboratory Results Cardiac Enzymes 11/08/20 11/09/2021 Range/Units 21:25 01:48 06:11 AST 16 (15-37) U/L Troponin I < 0.015 < 0.015 < 0.015 (0-0.045) ng/ml Coagulation 11/08/20 11/09/20 Range/Units 21:25 06:11 PT 9.9 (9.0-12.0) Seconds APTT 25.2 24.5 (21.0-31.0) Seconds Lipids 11/09/20 Range/Units 06:11 Triglycerides 143 (0-150) mg/dl Cholesterol 161 (0-200) mg/dl HDL Cholesterol 32 mg/dl Cholesterol/HDL Ratio 5 CBC 11/08/20 11/09/20 Range/Units 21:25 06:11 WBC 11.88 H 7.82 (4.8-10.8) K/uL RBC 4.49 3.95 L (4.2-5.4) M/uL Hgb 13.3 11.8 L (12.0-16.0) g/dL Hct 40.2 36.1 L (37-47) % Plt Count 258 208 (130-400) K/uL Neut # (Auto) 9.20 H 5.91 (1.4-6.5) K/uL Lymph # (Auto) 1.95 1.52 (1.2-3.4) K/uL [place] # (Auto) 0.58 0.27 (0.11-0.59) K/uL Eos # (Auto) 0.11 0.10 (0-0.5) K/uL Baso # (Auto) 0.02 0.01 (0-0.2) K/uL Comprehensive Metabolic Panel 11/08/20 11/09/20 Range/Units 21:25 06:11 Sodium 141 141 (136-145) mmol/L Potassium 4.0 3.7 (3.5-5.1) mmol/L Chloride 109 H 108 H (98-107) mmol/L Carbon Dioxide 28 28 (21-32) mmol/L BUN 13 10 (7-18) mg/dl Creatinine 1.01 0.83 (0.6-1.2) mg/dl Glucose 128 H 150 H (70-99) mg/dl Calcium 9.1 9.0 (8.5-10.1) mg/dl AST 16 (15-37) U/L ALT 17 (12-78) U/L Alkaline Phosphatase 161 H (45-117) U/L Total Protein 7.7 (6.4-8.2) gm/dl Albumin 3.5 (3.4-5.0) gm/dl Intake and Output 11/08/20 11/09/20 11/09/20 22:59 06:59 14:59 Intake Total 100 / 100 360 / 360 Balance 100 / 100 360 / 360 Intake: Oral 100 / 100 360 / 360 Other: # Unmeasured Voids 1 Weight 92.1 kg 89 kg Weight Measurement Method Chair Scale Built in [facility]
[2020-11-09] MEDS ORDERED: POTASSIUM CHLORIDE CRTAB 20 MEQ TABCR PO SCH (09:00)
[2020-11-09] MEDS ORDERED: FUROSEMIDE 40 MG TAB PO SCH (09:00)
[2020-11-09] MEDS ORDERED: ENOXAPARIN INJ 40 MG/0.4 ML SYR SQ SCH (09:00)
[2020-11-09] MEDS ORDERED: GABAPENTIN 600 MG TAB PO SCH (09:00)
[2020-11-09] MEDS ORDERED: carvediloL 12.5 MG TAB PO SCH (09:00)
[2020-11-09] MEDS ORDERED: VENLAFAXINE HCL XR 150 MG CAPXR PO SCH (09:00)
[2020-11-09] MEDS ORDERED: FAMOTIDINE 40 MG TABLET PO SCH (09:00)
[2020-11-09] MEDS ORDERED: SPIRONOLACTONE 25 MG TAB PO SCH (09:00)
[2020-11-09] MEDS ORDERED: lisinopril 2.5 MG TAB PO SCH (09:00)
[2020-11-09] MEDS ORDERED: allopurinoL 300 MG TAB PO SCH (09:00)
--- NOTE | 2020-11-09 10:36 | Electrocardiogram Report ---
Test Reason : Blood Pressure : / mmHG Vent. Rate : 086 BPM Atrial Rate : 086 BPM P-R Int : 180 ms QRS Dur : 134 ms QT Int : 410 ms P-R-T Axes : 068 -20 129 degrees QTc Int : 490 ms Normal sinus rhythm Left bundle branch block Abnormal ECG When compared with ECG of 30-NOV-2013 23:24, PA interval has decreased Confirmed by José Woods ([id number]) on 11/09/2020 10:36:17 AM Referred By: REFERRED SELF Confirmed By:José Woods
--- NOTE | 2020-11-09 12:36 | Hospitalist Progress Note ---
Date of Service November 09, 2020 Assessment & Plan (1) Chest pain: Plan: Multifactorial : Uncontrolled hypertension secondary to missed medications, anxiety given recent family Musculoskeletal component given reproducibility Rule out ACS given nitro relief chronic diastolic heart failure (EF 55 to 59%, TTE 2018), euvolemic history Takotsubo cardiomyopathy as per records chronic LBBB hyperlipidemia on statin Rx prediabetes, hemoglobin A1c of 6.24 June 2020 OBS PCU Analgesia, anxiolytic as needed Facilitate home BP meds, may need dose titration Follow troponin TTE, Cardiology consult RE chest pain DVT prophylaxis per Lovenox subcu Full code Patient daughter requesting updates from providers. Ms. Luann Ambrosio, contact #[phone]. Text document was generated using [employer] voice recognition software. It may contain grammatical or spelling errors. Kindly contact undersigned for clarification of any documentation item in question. Plan: 69-year-old female with history of chronic diastolic heart failure, history of Takotsubo cardiomyopathy, chronic LBBB, other problems noted below presenting with chest pain x1 day. Chest pain, acute coronary syndrome ruled out Multifactorial : Uncontrolled hypertension secondary to missed medications, anxiety given recent family Musculoskeletal component given reproducibility --Troponins x3: Negative EKG: LBBB-chronic, possible nonspecific T wave inversions in the lateral leads --Chest pain relieved by nitro in the ER, in the setting of elevated blood pressure Blood pressure now within normal range Chest pain-free since last night --Echocardiogram: Pending Pipe Fittings Molder consulted --Continue usual aspirin, carvedilol, lisinopril chronic diastolic heart failure (EF 55 to 59%, TTE 2018), euvolemic --Continue usual Lasix 40 mg p.o. twice daily, spironolactone 25 mg p.o. daily history Takotsubo cardiomyopathy as per records chronic LBBB hyperlipidemia on statin Rx prediabetes, hemoglobin A1c of 6.24 June 2020 DVT prophylaxis per Lovenox subcu Full code Patient daughter requesting updates from providers. Concepcion Luann Hebert, contact #[phone]. plan of care discussed with patient in detail and at length all questions answered She is understanding, agreeable, comfortable with the plan of care Admission and Anticipated Discharge Date Admission Date: November 09, 2020 Subjective Follow-up for chest pain, etc. Seen resting in bed, sleeping but easily awakened Not in distress, pleasant Chest pain-free since last night No shortness of breath, palpitations, dizziness, headache, abdominal pain, nausea No other symptoms Review of Systems Review of Systems: All noted, negative except for above Physical Exam Physical Exam: General- oriented x 3, not in distress, speaks in sentences with no effort or accessory muscle use Head- atraumatic Eyes- PERRL, EOMI, anicteric ENT- oropharynx clear Neck- supple, no JVD, no adenopathy, no thyromegaly; carotids +2/2, no bruits appreciated Lungs- clear to auscultation bilaterally, no rales/wheezes Heart- normal rate, regular rhythm; no murmur, no gallop, no rub appreciated Abdomen- normal bowel sounds, nondistended, soft, nontender, no masses or hepatosplenomegaly Extremities-trace pretibial edema, no calf tenderness; peripheral pulses intact Neuro- alert, oriented x 3; CN 2-12 grossly intact; motor 5/5 bilaterally;sensation 100% on all extremities; no other gross focal neurologic deficits Skin- warm & dry Results & Data Results & Data ([facility]) Vital Signs (Past 12 Hours) Vital Signs Temp Pulse Resp BP BP Pulse Ox 11/09/20 11:01 36.8 C 65 18 112/67 95 11/09/20 07:23 36.8 C 82 17 132/75 94 11/09/20 04:49 36.7 C 71 16 126/67 96 11/09/20 01:22 37.1 C 82 16 137/76 96 all noted and reviewed including below
--- NOTE | 2020-11-09 15:15 | Discharge Summary ---
Date of Service November 09, 2020 Admission HPI Per Admitting Provider History obtained from patient, family, and records. Medical history significant for chronic diastolic heart failure (EF 55 to 59%, TTE 2018), history Takotsubo cardiomyopathy as per records, chronic LBBB, hypertension, hyperlipidemia, prediabetes, ANAYA on CPAP. Last confinement August 2015 under Orthopedics service for elective right total shoulder arthroplasty. Patient noted substernal chest tightness without radiation or other symptoms around dinnertime today. Stressful day with patient 's demise at the hospital yesterday morning. Patient unable to take her home medications because she was not feeling well. No headache symptoms. No unusual fluid retention. Usual blood pressure controlled at home. Noncompliant with CPAP of late because patient's could not sleep when CPAP is on. Chest pain relieved by Nitropaste and Ativan administered at the ER. Medical History as above Surgical History : Knee surgery, breast biopsy, shoulder surgeries Family History : DM, heart disease Personal/Social history : Non-smoker, occasional EtOH intake, retired microbiological laboratory technician Admission Exam Per Admitting Provider GENERAL: Comfortable, slightly anxious, obese, slightly hard of hearing, no respiratory distress SKIN: Normal color, warm HEENT: [place] palpebral conjunctivae, no ptosis, moist buccal mucosa NECK : Supple, short neck, no tenderness CHEST : CTA, anterior chest wall tenderness HEART : RRR, no obvious murmurs ABDOMEN: Some distention, nontender EXTREMITIES : Minimal LE swelling, no LE tenderness, no other conspicuous deformities noted NEUROLOGIC : Coherent, no facial asymmetry, slightly hard of hearing, no other gross focality Principal Diagnosis CHEST PAIN, ACUTE CORONARY SYNDROME RULED OUT LIKELY SECONDARY TO UNCONTROLLED HYPERTENSION Discharge Exam General- oriented x 3, not in distress, speaks in sentences with no effort or accessory muscle use Head- atraumatic Eyes- PERRL, EOMI, anicteric ENT- oropharynx clear Neck- supple, no JVD, no adenopathy, no thyromegaly; carotids +2/2, no bruits appreciated Lungs- clear to auscultation bilaterally, no rales/wheezes Heart- normal rate, regular rhythm; no murmur, no gallop, no rub appreciated Abdomen- normal bowel sounds, nondistended, soft, nontender, no masses or hepatosplenomegaly Extremities-trace pretibial edema, no calf tenderness; peripheral pulses intact Neuro- alert, oriented x 3; CN 2-12 grossly intact; motor 5/5 bilaterally;sensation 100% on all extremities; no other gross focal neurologic deficits Skin- warm & dry Discharge Data Allergies Allergy/AdvReac Type Severity Reaction Status Date / Time blue dye Allergy Unknown itchy;swoll Verified 02/07/20 13:41 en chlorhexidine Allergy Unknown ITCHINESS Verified 02/07/20 13:41 Penicillins Allergy Unknown HIVES Verified 02/07/20 13:41 Consultations 11/08/20 23:00 ED Decision to Admit Stat 11/09/20 01:25 Consult Cardiology Routine Hospital Course (1) Chest pain: management per below 69-year-old female with history of chronic diastolic heart failure, history of Takotsubo cardiomyopathy, chronic LBBB, other problems noted below presenting with chest pain x1 day. Chest pain, acute coronary syndrome ruled out Multifactorial : Uncontrolled hypertension secondary to missed medications, anxiety given recent family --Troponins x3: Negative EKG: LBBB-chronic, possible nonspecific T wave inversions in the lateral leads Echo: stable findings of mildly abnormal septal motion consistent with left bundle branch block with normal LV wall motion otherwise. --Chest pain relieved by nitro in the ER, in the setting of elevated blood pressure Blood pressure now within normal range Chest pain-free since last night -- Agency Cashier Dr. Rivas consulted- does not recommend stress test at this point --Continue usual aspirin, carvedilol, lisinopril Chronic diastolic heart failure (EF 55 to 59%, TTE 2018), euvolemic --Continue usual Lasix 40 mg p.o. twice daily, spironolactone 25 mg p.o. daily history Takotsubo cardiomyopathy as per records chronic LBBB hyperlipidemia on statin Rx prediabetes, hemoglobin A1c of 6.24 June 2020 plan of care discussed with patient and her daughter in detail and at length all questions answered She is understanding, agreeable, comfortable with the plan of care Total Time Total Time Spent Total Time Spent (In Minutes): 50 MINUTES Discharge Plan Discharge Items Patient Disposition: Home - Self-Care Reason For Visit: CP Discharge Diagnosis: CHEST PAIN, LIKELY SECONDARY TO HYPERTENSION Activity: Resume your previous activity Activity Comment: GRADUALLY TOLERATED Lifting: Gradually increase as tolerated Exercise/Sports: Gradually increase as tolerated Driving/Machine Use: NO DRIVING UNTIL RE-EVALUATED AND ALLOWED BY PRIMARY CARE PHYSICIAN Non-emergency contact: Primary Care Provider Call non-emergency contact if: you have any medication questions, your symptoms worsen, your pain is not controlled, your pain is worsening, your pain is unusual for you, your pain is concerning for you and you have a fever Follow-up/Referrals: Bradley Swann MD [Primary Care Provider] - Diet: Heart Healthy Addtl Attending Provider Instructions: PLEASE TAKE MEDICATIONS DAILY DIRECTED. FOLLOW UP WITH DR. SWANN IN 1 WEEK. THE CLINIC WILL BE CALLING YOU SOON FOR THE APPOINTMENT. PLEASE CALL YOUR PRIMARY CARE PHYSICIAN OR RETURN TO THE ER IMMEDIATELY IF WITH WORSENING OF SYMPTOMS. Pending Studies at Discharge: No Stand-Alone Forms: My [facility] [email or web address], Smoking Cessation Medications and DC Order Prescriptions: Continued furosemide 40 mg Tablet 40 mg PO BID RF: 0 venlafaxine 75 mg Capsule,Extended Release 24hr 150 mg PO DAILY RF: 0 gabapentin 600 mg Tablet 600 mg PO BID RF: 0 carvedilol 12.5 mg Tablet 12.5 mg PO BID RF: 0 potassium chloride 10 mEq Tablet Extended Release 20 meq PO BID RF: 0 aspirin 81 mg Tablet,Delayed Release (Dr/Ec) 81 mg PO DAILY RF: 0 spironolactone 25 mg Tablet 25 mg PO DAILY RF: 0 alprazolam 0.25 mg Tablet 0.25 mg PO TID PRN (Reason: Anxiety) RF: 0 mirtazapine 30 mg Tablet 30 mg PO HS RF: 0 allopurinol 300 mg Tablet 300 mg PO DAILY RF: 0 lisinopril 2.5 mg Tablet 2.5 mg PO DAILY RF: 0 loperamide [Imodium A-D] 2 mg Capsule 0.5 tab PO Q3H PRN (Reason: Diarrhea) RF: 0 famotidine 40 mg tablet 40 mg PO BID RF: 0 Discharge Orders: Discharge Order (Routine); Ordered 11/09/20 Ordered By: Sonido Boucher Admission Data Admit Date/Time: 11/09/20 00:23 Attending Provider: Sonido Boucher Admit Provider: Sigifredo Rossi Primary Care Provider: Bradley Swann Other Providers: Sigifredo Rossi ; Yao Delaney ; Jose D Rivas ; Chaim Luo ; James Landry ; Jorgito Stiles ; Nilo Bellamy ; Tabby Anglin ; Melanie Hodgson ; Gina Guillen. ; Jasmeet Knutson
[2020-11-10] MEDS ORDERED: ASPIRIN 81 MG ECTAB PO SCH (09:00)
--- NOTE | 2020-11-11 13:00 | Electrocardiogram Report ---
Test Reason : Blood Pressure : / mmHG Vent. Rate : 078 BPM Atrial Rate : 078 BPM P-R Int : 202 ms QRS Dur : 130 ms QT Int : 448 ms P-R-T Axes : 066 -08 128 degrees QTc Int : 510 ms Normal sinus rhythm Left bundle branch block Abnormal ECG When compared with ECG of 08-NOV-2020 20:36, No significant change was found Confirmed by Gulshan Arriaza ([id number]) on 11/11/2020 12:59:41 PM Referred By: REFERRED SELF Confirmed By:Gulshan Arriaza
== END 2020-11-09 15:47 | disposition home or self-care (01) ==
LOC: ED 20:25 → 2S 11-09 00:23 → INTOOBSV 11-09 00:23 → 2S 11-09 00:54

== ENCOUNTER 2022-03-22 15:38 | Inpatient (IN) ==
[2022-03-22] MEDS ORDERED: ONDANSETRON INJ 2 MG/ML 2 ML VIAL IV STA (16:21)
--- NOTE | 2022-03-22 16:23 | Emergency Department Note ---
History of Present Illness General Chief complaint: Altered Mental Status Stated complaint: CONFUSION, ALTERED MENTAL STATUS Time Seen by Provider: 03/22/22 16:06 History of Present Illness 76-year-old female presents to the ED with a chief complaint, mostly provided by her daughter, of little confusion as well as decreased p.o. intake since yesterday afternoon. She states that she has not been feeling well and fluids and food taste bad. Denies abdominal pains. No chest pains or shortness of breath. No fevers. No cold symptoms. No additional complaints. Daughter was worried about dehydration. Home Medications Medication Instructions Recorded Confirmed Type allopurinol 300 mg tablet 300 mg PO QAM 01/19/18 03/22/22 History alprazolam 0.25 mg tablet 0.25 mg PO TID PRN Anxiety/insomnia 01/19/18 03/22/22 History aspirin 81 mg tablet,delayed 81 mg PO DAILY 01/19/18 03/22/22 History release carvedilol 12.5 mg tablet 12.5 mg PO BID 01/19/18 03/22/22 History furosemide 40 mg tablet 40 mg PO AMHS 01/19/18 03/22/22 History gabapentin 600 mg tablet 300 - 600 mg PO UD 01/19/18 03/22/22 History lisinopril 2.5 mg tablet 2.5 mg PO QAM 01/19/18 03/22/22 History mirtazapine 30 mg tablet 30 mg PO HS 01/19/18 03/22/22 History spironolactone 25 mg tablet 25 mg PO QAM 01/19/18 03/22/22 History venlafaxine 75 mg capsule,extended 150 mg PO QAM 01/19/18 03/22/22 History release 24 hr albuterol sulfate 2.5 mg/3 mL 2.5 mg inhalation Q4H PRN Wheezing 03/22/22 03/22/22 History (0.083 %) solution for nebulization bupropion HCl 150 mg 24 hr tablet, 150 mg PO DAILY 03/22/22 03/22/22 History extended release calcium polycarbophil 625 mg 2,500 mg PO UD 03/22/22 03/22/22 History tablet (FiberCon) famotidine 40 mg tablet 40 mg PO BID 03/22/22 03/22/22 History potassium chloride 20 mEq 20 meq PO AMHS 03/22/22 03/22/22 History tablet,extended release(part/cryst) Allergies Allergy/AdvReac Type Severity Reaction Status Date / Time blue dye Allergy Unknown itchy;swoll Verified 03/22/22 16:15 en chlorhexidine Allergy Unknown ITCHINESS Verified 02/07/20 13:41 Penicillins Allergy Unknown HIVES Verified 03/22/22 16:15 Past Med/Surg History Medical History (Updated 03/22/22 @ 18:26 by Jose Carlos Coronado DO) Amputation finger LEFT INDEX CHF (congestive heart failure) COPD (chronic obstructive pulmonary disease) Diverticulosis GERD (gastroesophageal reflux disease) Gout Hearing deficit Hypertension Kidney stones Osteoarthritis Poor historian Pulmonary hypertension Sleep apnea CPAP Takotsubo syndrome Surgical History History of ankle surgery RT History of cardiac cath 2007- [facility] - CP, SOB - NO STENTS/ANGIOPLASTY - FOLLOWS W/ DR. SLATER History of hand surgery History of tonsillectomy and adenoidectomy History of total knee replacement RT History of total shoulder replacement BL Family History Father Family history of diabetes mellitus Grandmother Family history of diabetes mellitus Social History Smoking Status: Never smoker Second Hand Exposure: Yes (OCCASIONALLY - DTR SMOKES (ALSO EXPOSED A CHILD)); Hx Alcohol Use: No Hx Substance Use: No Preferred Language: Slovenian Communication Ability: Effective Legal Stenographer Required: No Beliefs That Will Affect Care: None Current Living Situation: Alone Feels Safe at Home: Yes Assistive Devices: None Review of Systems A total of 10 systems reviewed and were otherwise negative Physical Exam Vital Signs Vital Signs - 24 hr 03/22/22 15:50 03/22/22 17:16 03/22/22 17:16 Temperature 37.5 C Temperature Source Temporal Artery Scan Pulse Rate 107 H Pulse Rate [Apical] 93 H Pulse Rate from SpO2 Sensor Pulse Rhythm Regular Pulse Strength Normal Respiratory Rate 20 23 Respiratory Effort / Characteristics Non-Labored Spontaneous Non-Labored Respiratory Depth Normal Normal Respiratory Pattern Regular Blood Pressure 153/79 H Blood Pressure [Left Arm] 142/63 H Blood Pressure Mean 103 Blood Pressure Mean [Left Arm] 89 Blood Pressure Position Sitting Pulse Oximetry 94 93 Oxygen Delivery Method Room Air Room Air Room Air Sepsis Recent Fever Within 48 Hours No Sepsis New/Unexplained Change in Mental Status N/A Sepsis Action Taken by Nursing No Action Required 03/22/22 17:16 03/22/22 17:30 03/22/22 17:30 Temperature Temperature Source Pulse Rate 92 H Pulse Rate [Apical] Pulse Rate from SpO2 Sensor 92 H Pulse Rhythm Pulse Strength Respiratory Rate 21 Respiratory Effort / Characteristics Respiratory Depth Respiratory Pattern Blood Pressure 163/54 H Blood Pressure [Left Arm] Blood Pressure Mean 90 Blood Pressure Mean [Left Arm] Blood Pressure Position Pulse Oximetry Oxygen Delivery Method Room Air Room Air Sepsis Recent Fever Within 48 Hours Sepsis New/Unexplained Change in Mental Status Sepsis Action Taken by Nursing 03/22/22 18:00 03/22/22 18:00 03/22/22 18:15 Temperature 39.5 C H Temperature Source Oral Pulse Rate 93 H Pulse Rate [Apical] Pulse Rate from SpO2 Sensor 93 H Pulse Rhythm Pulse Strength Respiratory Rate 20 Respiratory Effort / Characteristics Respiratory Depth Respiratory Pattern Blood Pressure 141/53 H Blood Pressure [Left Arm] Blood Pressure Mean 82 Blood Pressure Mean [Left Arm] Blood Pressure Position Pulse Oximetry 93 Oxygen Delivery Method Room Air Sepsis Recent Fever Within 48 Hours Sepsis New/Unexplained Change in Mental Status Sepsis Action Taken by Nursing CONSTITUTIONAL/VITAL SIGNS: Reviewed / noted above. GENERAL: Non-toxic in appearance. INTEGUMENTARY: Warm, dry, and [place]. HEAD: Normocephalic. EYES: without scleral icterus or trauma. ENT/OROPHARYNX: clear and moist. LYMPHADENOPATHY/NECK: Is supple without lymphadenopathy or meningismus. RESPIRATORY: Clear to auscultation bilaterally. No increased work of breathing. CARDIOVASCULAR: Regular rate and rhythm. GI/ABDOMEN: Soft and nontender. No organomegaly or pulsatile mass. EXTREMITIES: Warm and well perfused. Right lower extremity is erythematous and hot. BACK: No CVA tenderness. NEUROLOGICAL: Intact without focal deficits. PSYCHIATRIC: normal affect. MUSCULOSKELETAL: Normally developed with good muscle tone. TRIAGE NURSING DOCUMENTATION REVIEWED. Procedures EJ/Peripheral Line Arm R: Time Out Performed: Yes Skin Cleansed in Sterile Fashion: Yes Size (gauge): 20 IV Secured and Dressing Applied: Yes Patient Tolerated Procedure: well and no complications Additional Comments: Nursing staff unable to achieve IV access. Course Administered Medications Discontinued Medications Sodium Chloride (Nss 1000ml) 1,000 mls @ 999 mls/hr IV .Q1H1M HUMAIRA Stop: 03/22/22 17:30 Last Admin: 03/22/22 17:17 Dose: 999 mls/hr Documented By: FACUNDO Ondansetron HCl (Ondansetron Inj 2 Mg/Ml 2 Ml Vial) 4 mg IV NOW STA Stop: 03/22/22 16:22 Last Admin: 03/22/22 17:18 Dose: 4 mg Documented By: FACUNDO Medical Decision Making Differential Diagnosis Differential includes acute coronary syndrome, myocardial infarction, CVA, TIA, anemia, infection, pneumonia, UTI, pyelonephritis, poor nutrition, dehydration, electrolyte disturbance,hypoglycemia. Medical Records Attestation: I reviewed the patient's medical records. Home Medications Current Medication List: was personally reviewed by me Laboratory Data Attestation: I reviewed the patient's lab results. Result diagrams: 03/22/22 16:30 03/22/22 16:30 Lab Results 03/22/22 03/22/22 03/22/22 Range/Units 16:13 16:30 16:30 WBC 19.82 H (4.8-10.8) K/ul RBC 4.01 (3.93-5.22) M/uL Hgb 12.1 (12.0-16.0) g/dl Hct 35.6 (34.1-44.9) % MCV 88.8 (80.0-100.0) fL MCH 30.2 (25.0-34.0) pg MCHC 34.0 (32.0-36.0) g/dL RDW Std Deviation 43.9 (36.4-46.3) fL RDW Coeff of Marj 13.3 (11.5-14.5) % Plt Count 231 (130-400) K/uL MPV 10.4 (9.4-12.3) fL Immature Gran % (Auto) 1.5 % Neut % (Auto) 91.3 % Lymph % (Auto) 3.2 % [place] % (Auto) 3.5 % Eos % (Auto) 0.3 % Baso % (Auto) 0.2 % Neut # (Auto) 18.10 H (1.4-6.5) K/uL Lymph # (Auto) 0.63 L (1.2-3.4) K/uL [place] # (Auto) 0.70 (0.24-0.82) K/uL Eos # (Auto) 0.05 (0-0.50) K/uL Baso # (Auto) 0.04 (0-0.2) K/uL Immature Gran # (Auto) 0.30 H (0.00-0.02) K/uL Sodium 130 L (136-145) mmol/L Potassium 3.3 L (3.5-5.1) mmol/L Chloride 97 L (98-107) mmol/L Carbon Dioxide 23 (21-32) mmol/L Anion Gap 10 (3-11) BUN 17 (6-23) mg/dl Creatinine 1.30 H (0.6-1.2) mg/dl Est Cr Clr Drug Dosing 41.5 ml/min Est GFR ( Amer) 45.8 ml/min Est GFR (Non-Af Amer) 39.5 ml/min BUN/Creatinine Ratio 13.1 (10-20) Glucose 304 H* (70-99(Fasting)) mg/dl POC Glucose 319 H* (70-99) mg/dl Calcium 8.9 (8.5-10.1) mg/dl Magnesium 1.4 L (1.7-2.4) mg/dl Total Bilirubin 1.5 H (0.2-1.0) mg/dl AST 11 L (13-39) U/L ALT 7 (7-52) U/L Alkaline Phosphatase 101 (34-104) U/L Total Creatine Kinase 43 (26-192) U/L Troponin I High Sens 16.4 H (0-14) pg/ml Total Protein 7.2 (6.0-8.3) gm/dl Albumin 3.9 (3.4-5.0) gm/dl Globulin 3.3 (2.5-4.0) gm/dl Albumin/Globulin Ratio 1.2 (0.9-2) Imaging Data Radiologist's Impression: Chest X-Ray 03/22/22 16:21 XR chest 1V portable HISTORY: 76 years-old Female weakness weakness COMPARISON: Chest radiograph 11/08/2020 TECHNIQUE: AP view of the chest FINDINGS: Cardiomediastinal and hilar silhouettes are within normal limits. No pneumothorax, pleural effusion, airspace consolidation or overt pulmonary edema. Spondylitic spurring of the spine. Bilateral shoulder arthroplasties. IMPRESSION: No acute process. ACT 112: Negative or not required by law. The above report was generated using voice recognition software. It may contain grammatical, syntax or spelling errors. Electronically signed by: Michael Baca M.D. 03/22/2022 4:45 PM ECG Data Attestation: I personally reviewed and interpreted this ECG as follows: Additional Comments: EKG: Per my interpretation shows a sinus rhythm at a rate of 93 with left bundle branch block. No PVCs. Normal QTC. MDM Narrative 76-year-old female with a chief complaint of decreased p.o. intake for the past 24 hours and just generally not feeling well. The daughter said that she seemed a little confused earlier. Checks her questions appropriately here. She is hard of hearing. Vital signs reveal heart rate of 107 and a blood pressure 1 53/79. Right lower extremity is erythematous and warm. Chest x-ray did not show acute process. Her CBC shows an elevated white blood cell count of 19.8. Chemistry panel was unremarkable. The patient was given IV fluids and IV Zofran. She was also given IV cefepime. IV fluids were administered. 30 cc/kg was not given as the patient has not in septic shock and her blood pressure was elevated. EKG shows a sinus rhythm. Chest x-ray did not show acute process. Glucose is 305. Other test results are noted above. She will be seen by the hospitalist for further evaluation and care. Impression & Plan Malaise, Anorexia, Cellulitis of leg, right Discharge Plan Visit Data Chief Complaint: Altered Mental Status Stated Complaint: CONFUSION, ALTERED MENTAL STATUS ED Provider: Jose Carlos Coronado Discharge Problem: Malaise, Anorexia, Cellulitis of leg, right Patient Disposition: Being Evaluated by Hospitalist Forms Stand Alone Forms: My [facility] Prescriptions Prescriptions: No Action furosemide 40 mg Tablet 40 mg PO AMHS venlafaxine 75 mg Capsule,Extended Release 24hr 150 mg PO QAM gabapentin 600 mg Tablet 300 - 600 mg PO UD Rx Instructions: take 1 tablet in the morning,1/2 tablet in the afternoon and 1 tablet at bedtime carvedilol 12.5 mg Tablet 12.5 mg PO BID aspirin 81 mg Tablet,Delayed Release (Dr/Ec) 81 mg PO DAILY spironolactone 25 mg Tablet 25 mg PO QAM alprazolam 0.25 mg Tablet 0.25 mg PO TID PRN (Reason: Anxiety/insomnia) Rx Instructions: use in morning,noon,or evening for anxiety or insomnia mirtazapine 30 mg Tablet 30 mg PO HS allopurinol 300 mg Tablet 300 mg PO QAM lisinopril 2.5 mg Tablet 2.5 mg PO QAM famotidine 40 mg tablet 40 mg PO BID bupropion HCl 150 mg tablet extended release 24 hr 150 mg PO DAILY potassium chloride 20 mEq tablet,ER particles/crystals 20 meq PO AMHS albuterol sulfate 2.5 mg /3 mL (0.083 %) Solution For Nebulization 2.5 mg INHALATION Q4H PRN (Reason: Wheezing) calcium polycarbophil [FiberCon] 625 mg Tablet 2,500 mg PO UD Referrals Referrals: Bradley Ruiz MD [Primary Care Provider] -
[2022-03-22] MEDS ORDERED: SODIUM CHLORIDE 0.9% 1000ML 1,000 ML IV SCH (16:30)
[2022-03-22 16:47] LABS: Hematocrit (blood only) 35.6 % (34.1-44.9); Hemoglobin 12.1 g/dl (12.0-16.0); Mean Corpuscular Hemoglobin 30.2 pg (25.0-34.0); Mean Corpuscular Volume 88.8 fL (80.0-100.0); Mean Platelet Volume 10.4 fL (9.4-12.3); Platelet Count 231 K/uL (130-400); RDW Coefficient of Variation 13.3 % (11.5-14.5); RDW Standard Deviation 43.9 fL (36.4-46.3); Red Blood Count 4.01 M/uL (3.93-5.22); White Blood Count 19.82 K/ul (4.8-10.8)
--- NOTE | 2022-03-22 16:47 | XRay Report ---
XR chest 1V portable HISTORY: 76 years-old Female weakness weakness COMPARISON: Chest radiograph 11/08/2020 TECHNIQUE: AP view of the chest FINDINGS: Cardiomediastinal and hilar silhouettes are within normal limits. No pneumothorax, pleural effusion, airspace consolidation or overt pulmonary edema. Spondylitic spurring of the spine. Bilateral shoulde r arthroplasties. IMPRESSION: No acute process. ACT 112: Negative or not required by law. The above report was generated using voice recognition software. It may contain grammatical, syntax o r spelling errors. Electronically signed by: Michael Baca M.D. 03/22/2022 4:45 PM
[2022-03-22 17:12] LABS: Basophils # (auto) 0.04 K/uL (0-0.2); Basophils % (auto) 0.2 %; Eosinophils # (auto) 0.05 K/uL (0-0.50); Eosinophils % (auto) 0.3 %; Immature Granulocytes % (auto) 1.5 %; Lymphocytes # (auto) 0.63 K/uL (1.2-3.4); Lymphocytes % (auto) 3.2 %; Monocytes % (auto) 3.5 %; Neutrophils % (auto) 91.3 %
[2022-03-22 17:14] LABS: Troponin I High Sensitivity 16.4 pg/ml (0-14)
[2022-03-22 17:40] LABS: Albumin Globulin Ratio 1.2 (0.9-2); Albumin Level 3.9 gm/dl (3.4-5.0); BUN Creatinine Ratio 13.1 (10-20); Bilirubin,Total 1.5 mg/dl (0.2-1.0); Calcium 8.9 mg/dl (8.5-10.1); Creatinine Clr Calc Pharmacy 41.5 ml/min; Est GFR (African American) 45.8 ml/min; Est GFR (Non-African American) 39.5 ml/min; Globulin 3.3 gm/dl (2.5-4.0); Magnesium 1.4 mg/dl (1.7-2.4); Potassium 3.3 mmol/L (3.5-5.1); Total Protein 7.2 gm/dl (6.0-8.3)
[2022-03-22] MEDS ORDERED: CEFEPIME 2,000 MG in SYRINGE 0 ML IV STA (18:17)
[2022-03-22] MEDS ORDERED: SODIUM CHLORIDE 0.9% 1000ML 1,000 ML IV ONE (18:21)
[2022-03-22] MEDS ORDERED: ACETAMINOPHEN 1,000 MG/100 ML VIAL IV STA (18:24)
[2022-03-22 18:25] LABS: Appearance Urine Clear (Clear); Bacteria Urine Automated Negative (Negative); Bilirubin Urine Negative (Negative); Blood Urine 1+ (Negative); Color Urine Dark Yellow; Glucose Urine UA Trace (Negative); Ketones Urine Negative (Negative); Leukocyte Esterase Urine Negative (Negative); Nitrite Urine Negative (Negative); Protein Urine 2+ (Negative); RBC Urine Automated 0-4 /hpf (0-4); Urobilinogen Urine Negative (Negative); pH Urine 5.5 (4.5-7.5)
--- NOTE | 2022-03-22 18:58 | History & Physical Report ---
Date of Service March 22, 2022 Assessment & Plan (1) Sepsis: (2) Cellulitis of right leg: Plan: This is a 76-year-old female with PMH of chronic diastolic heart failure, left bundle branch block, hypertension, CKD 3, mood disorder, IBS and other medical problems listed below who presents with daughter for concerns of confusion and decreased oral intake was found to have sepsis 2/2 RLE cellulitis and COVID-19 infection. Febrile at 39.5 C, leukocytosis of 19.8 2K, lactate within normal range Cefepime started in ED. Continue, added daptomycin for broad-spectrum coverage Foot x-ray ordered to evaluate for heel osteomyelitis (3) COVID-19: Plan: Saturating without issue on room air. No shortness of breath Isolation precautions (4) CHF (congestive heart failure): Plan: Chest x-ray with no acute process. Hold AM lasix until volume status, AM labs are obtained (5) JW (acute kidney injury): Plan: Cr 1.3 (baseline ~0.83) in setting of poor p.o. intake, infection Monitor renal function with daily BMP Holding AM spironolactone, lisinopril, lasix (6) Mood disorder: Plan: Continue Xanax as needed, bupropion (7) Hypokalemia: Plan: Initial K 3.3. Replaced (8) Hypertension: Plan: Normotensive. Continue carvedilol with parameters, holding lisinopril due to JW (9) Hyponatremia: Plan: Pseudohyponatremia given elevated bsg. Correct BSG, monitor Na on daily BMP (10) Hyperglycemia: Plan: Denies formal dx of DM II but BSG >300. A1c ordeed for AM. Given SQ Lantus HS, SSI AC HS DVT Ppx: SQ heparin Code status: FULL PCP: Dr. Ruiz Dispo: Admitted to PCU Patient seen in collaboration with Dr. Reyna. Please see addendum. History of Present Illness Chief Complaint: Confusion, decreased p.o. intake Primary Care Provider: Bradley Ruiz MD This is a 76-year-old female with PMH of chronic diastolic heart failure, left bundle branch block, hypertension, CKD 3, mood disorder, IBS and other medical problems listed below who presents with daughter for concerns of confusion and decreased oral intake. Seemed lethargic and was not clear on the time, which is unusual for her. When daughter visited today, patient was having trouble getting out of bed on her own. Unsure when she developed redness and pain in lower right leg. Does have some discomfort in upper R thigh from [place] jumping on her. No lightheadedness, CP, SOB, N/V, abdominal pain, dysuria, diarrhea or constipation. Lives with daughter. Allergies Allergy/AdvReac Type Severity Reaction Status Date / Time blue dye Allergy Unknown itchy;swoll Verified 03/22/22 16:15 en chlorhexidine Allergy Unknown ITCHINESS Verified 02/07/20 13:41 Penicillins Allergy Unknown HIVES Verified 03/22/22 16:15 Home Medications Medication Instructions Recorded Confirmed Type allopurinol 300 mg tablet 300 mg PO QAM 01/19/18 03/22/22 History alprazolam 0.25 mg tablet 0.25 mg PO TID PRN Anxiety/insomnia 01/19/18 03/22/22 History aspirin 81 mg tablet,delayed 81 mg PO DAILY 01/19/18 03/22/22 History release carvedilol 12.5 mg tablet 12.5 mg PO BID 01/19/18 03/22/22 History furosemide 40 mg tablet 40 mg PO AMHS 01/19/18 03/22/22 History gabapentin 600 mg tablet 300 - 600 mg PO UD 01/19/18 03/22/22 History lisinopril 2.5 mg tablet 2.5 mg PO QAM 01/19/18 03/22/22 History mirtazapine 30 mg tablet 30 mg PO HS 01/19/18 03/22/22 History spironolactone 25 mg tablet 25 mg PO QAM 01/19/18 03/22/22 History venlafaxine 75 mg capsule,extended 150 mg PO QAM 01/19/18 03/22/22 History release 24 hr albuterol sulfate 2.5 mg/3 mL 2.5 mg inhalation Q4H PRN Wheezing 03/22/22 03/22/22 History (0.083 %) solution for nebulization bupropion HCl 150 mg 24 hr tablet, 150 mg PO DAILY 03/22/22 03/22/22 History extended release calcium polycarbophil 625 mg 2,500 mg PO UD 03/22/22 03/22/22 History tablet (FiberCon) famotidine 40 mg tablet 40 mg PO BID 03/22/22 03/22/22 History potassium chloride 20 mEq 20 meq PO AMHS 03/22/22 03/22/22 History tablet,extended release(part/cryst) Past Med/Surg History Medical History (Updated 03/22/22 @ 23:48 by Tamy Sun PA-C) Amputation finger LEFT INDEX CHF (congestive heart failure) COPD (chronic obstructive pulmonary disease) Diverticulosis GERD (gastroesophageal reflux disease) Gout Hearing deficit Hypertension Kidney stones Mood disorder Osteoarthritis Poor historian Pulmonary hypertension Sleep apnea CPAP Takotsubo syndrome Surgical History History of ankle surgery RT History of cardiac cath 2008- [facility] - CP, SOB - NO STENTS/ANGIOPLASTY - FOLLOWS W/ DR. SLATER History of hand surgery History of tonsillectomy and adenoidectomy History of total knee replacement RT History of total shoulder replacement BL Family History Father Family history of diabetes mellitus Grandmother Family history of diabetes mellitus Social History Smoking Status: Never smoker Second Hand Exposure: Yes (OCCASIONALLY - DTR SMOKES (ALSO EXPOSED A CHILD)); Hx Alcohol Use: No Hx Substance Use: No Preferred Language: Central African Communication Ability: Effective Locker Plant Attendant Required: No Beliefs That Will Affect Care: None Current Living Situation: Alone Feels Safe at Home: Yes Assistive Devices: Cane Review of Systems Review of Systems: At least ten systems reviewed and negative except as noted in the HPI. Physical Exam Physical Exam: Please see addendum for Dr. Reyna's physical exam. Results & Data Results & Data ([facility]) Vital Signs (Past 12 Hours) Vital Signs Temp Pulse Pulse Resp BP BP Pulse Ox 03/22/22 18:30 92 H 16 03/22/22 18:15 39.5 C H 03/22/22 18:00 93 H 20 93 03/22/22 18:00 141/53 H 03/22/22 17:30 92 H 21 03/22/22 17:30 163/54 H 03/22/22 17:16 03/22/22 17:16 03/22/22 17:16 93 H 23 142/63 H 93 03/22/22 15:50 37.5 C 107 H 20 153/79 H 94 O2 Del Method 03/22/22 18:30 03/22/22 18:15 03/22/22 18:00 Room Air 03/22/22 18:00 03/22/22 17:30 Room Air 03/22/22 17:30 03/22/22 17:16 Room Air 03/22/22 17:16 Room Air 03/22/22 17:16 Room Air 03/22/22 15:50 Room Air Laboratory Results Short CBC 03/22/22 Range/Units 16:30 WBC 19.82 H (4.8-10.8) K/ul Hgb 12.1 (12.0-16.0) g/dl Hct 35.6 (34.1-44.9) % Plt Count 231 (130-400) K/uL BMP 03/22/22 16:30 Sodium 130 L Potassium 3.3 L Chloride 97 L Carbon Dioxide 23 BUN 17 Creatinine 1.30 H Glucose 304 H* Calcium 8.9 Cardiac Enzymes 03/22/22 Range/Units 16:30 Total Creatine Kinase 43 (26-192) U/L Liver Function 03/22/22 Range/Units 16:30 Total Bilirubin 1.5 H (0.2-1.0) mg/dl AST 11 L (13-39) U/L ALT 7 (7-52) U/L Alkaline Phosphatase 101 (34-104) U/L Albumin 3.9 (3.4-5.0) gm/dl Urine 03/22/22 Range/Units 18:13 Urine Color Dark Yellow Urine Appearance Clear (Clear) Urine pH 5.5 (4.5-7.5) Ur Specific [place] 1.020 (1.000-1.030) Urine Protein 2+ H (Negative) Urine Glucose (UA) Trace H (Negative) Diagnostic Findings Chest X-Ray 03/22/22 16:21 XR chest 1V portable HISTORY: 76 years-old Female weakness weakness COMPARISON: Chest radiograph 11/08/2020 TECHNIQUE: AP view of the chest FINDINGS: Cardiomediastinal and hilar silhouettes are within normal limits. No pneumothorax, pleural effusion, airspace consolidation or overt pulmonary edema. Spondylitic spurring of the spine. Bilateral shoulder arthroplasties. IMPRESSION: No acute process. ACT 112: Negative or not required by law. The above report was generated using voice recognition software. It may contain grammatical, syntax or spelling errors. Electronically signed by: Michael Baca M.D. 03/22/2022 4:45 PM Supervising Physician Co-Signing Physician Notes Pt seen and examined by me, care coordinated w/ Kailash Sun PA-C, pls refer to her note above for further detail. Pt is a 76 yo F w/chronic diastolic heart failure, left bundle branch block, hypertension, CKD 3, mood disorder, IBS who presents w/ sepsis - (fever and leukocytosis), found to have RLE cellulitis and covid 19 infection. Pt denies chest pain, shortness of breath or cough. Per daughter, pt was somewhat confused at home. Pt also denies any abdominal pain, dysuria. Reports having some loose stools on and off and hx of IBS. Started on cefepime in the ED. On physical exam she is lying in bed in no acute distress, she is able to answer simple questions appropriately. She is hard of hearing though. Lungs are clear to auscultation bilaterally without any wheezing rhonchi crackles noted. Heart sounds regular. Abdomen soft nontender nondistended. Significant erythema up to her R knee. Also small wound on her right heel noted. Skin is erythematous and warm, and is also somewhat tender to touch. Will sherron the erythema to follow-up. We will add daptomycin. Continue cefepime. Obtain x-ray of right foot to rule out osteomyelitis. We will follow blood cultures. MD Maribell
[2022-03-22] MEDS ORDERED: MAGNESIUM SULFATE / D5W 1 GM/100 ML BAG IV ONE (19:27)
[2022-03-22] MEDS ORDERED: LANTUS PER UNIT CHARGE SQ STA (19:57)
[2022-03-22] MEDS ORDERED: CEFEPIME 2,000 MG/20 ML VIAL ONE (20:05)
[2022-03-22] MEDS: DAPTOmycin 300 MG in SYRINGE 0 ML IV SCH (20:53)
[2022-03-22] MEDS ORDERED: GLUCOSE 10 TAB/TUBE PO PRN (21:16)
[2022-03-22] MEDS ORDERED: ONDANSETRON INJ 2 MG/ML 2 ML VIAL IV PRN (21:16)
[2022-03-22] MEDS ORDERED: GLUCAGON FOR INJ 1 MG VIAL SQ PRN (21:16)
[2022-03-22] MEDS ORDERED: ALBUTEROL 0.083% NEBU SOLN 3 ML VIAL INH PRN (21:16)
[2022-03-22] MEDS ORDERED: GLUCOSE 40% GEL 15 GM TUBE PO PRN (21:16)
[2022-03-22] MEDS ORDERED: ALPRAZolam 0.25 MG TABLET PO PRN (21:16)
[2022-03-22] MEDS ORDERED: POLYETHYLENE (MIRALAX) 17 GM PACK PO PRN (21:16)
[2022-03-22] MEDS ORDERED: ACETAMINOPHEN 325 MG TAB PO PRN (21:16)
[2022-03-22] MEDS ORDERED: DEXTROSE 50% 50 ML SYRINGE IV PRN (21:16)
[2022-03-22] MEDS ORDERED: CARBOHYDRATES FOR HYPOGLYCEMIA PO PRN (21:16)
[2022-03-22] MEDS ORDERED: Flu Vaccine-High Dose (Fluzone-HD) PF 65+ 0.7mL SYR IM ONE (21:45)
[2022-03-22] MEDS: GABAPENTIN 600 MG TAB PO SCH (22:19)
[2022-03-22] MEDS: FAMOTIDINE 40 MG TABLET PO SCH (22:20)
[2022-03-22] MEDS: FUROSEMIDE 40 MG TAB PO SCH (22:24)
[2022-03-22] MEDS: MIRTAZAPINE TAB 15 MG TAB PO SCH (22:24)
[2022-03-22] MEDS: carvediloL 12.5 MG TAB PO SCH (22:24)
[2022-03-22] MEDS: POTASSIUM CHLORIDE CRTAB 20 MEQ TABCR PO SCH (22:25)
[2022-03-22] MEDS: HEPARIN SOD 5,000 UNIT/0.5 ML VIAL SQ SCH (22:31)
[2022-03-22] MEDS: INSULIN ASPART PER UNIT SC SCH (22:50)
[2022-03-22] MEDS ORDERED: POTASSIUM CHLORIDE CRTAB 20 MEQ TABCR PO STA (23:54)
[2022-03-23] MEDS: INSULIN ASPART PER UNIT SC SCH ×6 (00:04→20:01)
[2022-03-23] MEDS: HEPARIN SOD 5,000 UNIT/0.5 ML VIAL SQ SCH ×3 (05:56→21:09)
[2022-03-23 06:52] LABS: Hematocrit (blood only) 33.3 % (34.1-44.9); Hemoglobin 10.8 g/dl (12.0-16.0); Mean Corpuscular Hgb Conc 32.4 g/dL (32.0-36.0); Mean Corpuscular Volume 92.5 fL (80.0-100.0); Mean Platelet Volume 10.5 fL (9.4-12.3); Platelet Count 200 K/uL (130-400); RDW Coefficient of Variation 13.5 % (11.5-14.5); RDW Standard Deviation 46.1 fL (36.4-46.3); White Blood Count 16.19 K/ul (4.8-10.8)
[2022-03-23 07:09] LABS: Estimated Average Glucose 143 mg/dl; Hemoglobin A1C 6.6 % (4.5-5.6)
[2022-03-23 07:14] LABS: BUN Creatinine Ratio 15.3 (10-20); Calcium 8.3 mg/dl (8.5-10.1); Creatinine Clr Calc Pharmacy 46.6 ml/min; Est GFR (African American) 51.5 ml/min; Est GFR (Non-African American) 44.5 ml/min; Potassium 3.7 mmol/L (3.5-5.1)
--- NOTE | 2022-03-23 08:45 | XRay Report ---
RIGHT FOOT 3 VIEWS CLINICAL HISTORY: Infection in the heel. FINDINGS: 3 views of the right foot are compared to study dated 03/23/2018. The skeletal structures a re osteopenic. There is an age-indeterminate avulsion fracture at the base of the fourth proximal pha lanx. There is age indeterminant posttraumatic change involving the head of the fifth proximal phalan x. These findings are likely subacute to chronic. No additional findings are suspicious for acute fra cture. There is no bony erosion or periostitis. An os naviculare is incidentally noted. [id number] ate osteoarthritic change is seen at the first and second metatarsophalangeal joints. Mild arthritic change is also noted in the midfoot. Degenerative change is seen at the tibiotalar articulation. Ther e has been buttress plate fixation of the distal fibula. Degenerative spurring is seen along the dors al aspect of the tarsal bones. Soft tissue edema is present along the dorsum of the foot. Soft tissue thickening seen posterior to the ankle. No soft tissue gas or radiodense foreign body is seen. IMPRESSION: 1. There is no bony erosion or periostitis to suggest osteomyelitis. 2. Age-indeterminate posttraumatic change of the fourth and fifth proximal phalanges. These are likel y subacute to chronic and clinical correlation will be required. 3. Osteopenia and degenerative change as above. Electronically signed by: Renato Tucker M.D. 03/23/2022 8:44 AM
[2022-03-23] MEDS: CEFEPIME 1,000 MG in SYRINGE 0 ML IV SCH ×2 (08:46→21:07)
[2022-03-23] MEDS: POTASSIUM CHLORIDE CRTAB 20 MEQ TABCR PO SCH ×2 (08:46→21:08)
[2022-03-23] MEDS: carvediloL 12.5 MG TAB PO SCH ×2 (08:47→21:06)
[2022-03-23] MEDS: GABAPENTIN 600 MG TAB PO SCH ×2 (08:47→21:08)
[2022-03-23] MEDS: FAMOTIDINE 40 MG TABLET PO SCH ×2 (08:47→21:07)
[2022-03-23] MEDS: VENLAFAXINE HCL XR 150 MG CAPXR PO SCH (08:48)
[2022-03-23] MEDS: allopurinoL 300 MG TAB PO SCH (08:48)
[2022-03-23] MEDS: buPROPion XL 150 MG TABCR PO SCH (08:48)
[2022-03-23] MEDS: ASPIRIN 81 MG ECTAB PO SCH (08:48)
[2022-03-23] MEDS ORDERED: lisinopril 2.5 MG TAB PO SCH (09:00)
--- NOTE | 2022-03-23 10:43 | Electrocardiogram Report ---
Test Reason : Blood Pressure : / mmHG Vent. Rate : 093 BPM Atrial Rate : 093 BPM P-R Int : 186 ms QRS Dur : 130 ms QT Int : 402 ms P-R-T Axes : 061 -14 126 degrees QTc Int : 499 ms Poor data quality, interpretation may be adversely affected Normal sinus rhythm Possible Left atrial enlargement Left bundle branch block Abnormal ECG When compared with ECG of 09-NOV-2020 05:56, No significant change was found Confirmed by Michael Aguayo ([id number]) on 03/23/2022 10:43:27 AM Referred By: REFERRED SELF Confirmed By:Surya Aguayo
[2022-03-23] MEDS: ADVANCED PROBIOTIC 1250 MG CAPSULE PO SCH (12:45)
[2022-03-23] MEDS: GABAPENTIN 300 MG CAP PO SCH (12:46)
[2022-03-23 14:35] LABS: Adenovirus F 40/41 PCR Not Detected (NotDetected); Astrovirus PCR Not Detected (NotDetected); Campylobacter PCR Not Detected (NotDetected); Cryptosporidium PCR Not Detected (NotDetected); Cyclospora cayetanensis PCR Not Detected (NotDetected); Entamoeba histolytica PCR Not Detected (NotDetected); Enteroaggregative E.coli(EAEC) Not Detected (NotDetected); Enterotoxigenic E.coli (ETEC) Not Detected (NotDetected); Giardia lamblia PCR Not Detected (NotDetected); Norovirus GI/GII PCR Not Detected (NotDetected); Plesiomonas shigelloides PCR Not Detected (NotDetected); Rotavirus A PCR Not Detected (NotDetected); Salmonella PCR Not Detected (NotDetected); Sapovirus PCR Not Detected (NotDetected); Shiga-like Toxin E.coli (STEC) Not Detected (NotDetected); Shigella/Enteroinvasive E.coli Not Detected (NotDetected); Vibrio cholerae PCR Not Detected (NotDetected); Vibrio species PCR Not Detected (NotDetected); Yersinia enterocolitica PCR Not Detected (NotDetected)
[2022-03-23 14:57] LABS: Enteropathogenic E.coli (EPEC) DETECTED (NotDetected)
--- NOTE | 2022-03-23 17:14 | Hospitalist Progress Note ---
Date of Service March 23, 2022 Assessment & Plan (1) Sepsis: (2) Cellulitis of right leg: Plan: This is a 76-year-old female with PMH of chronic diastolic heart failure, left bundle branch block, hypertension, CKD 3, mood disorder, IBS and other medical problems listed below who presents with daughter for concerns of confusion and decreased oral intake was found to have sepsis 2/2 RLE cellulitis and COVID-19 infection. Febrile at 39.5 C, leukocytosis of 19.8 2K, lactate within normal range Cefepime started in ED. Continue, added daptomycin for broad-spectrum coverage Foot x-ray ordered to evaluate for heel osteomyelitis - no osteo (3) COVID-19: Plan: Saturating without issue on room air. No shortness of breath Isolation precautions (4) CHF (congestive heart failure): Plan: Chest x-ray with no acute process. Resume lasix as appropriate (5) JW (acute kidney injury): Plan: Cr 1.3 (baseline ~0.83) in setting of poor p.o. intake, infection Monitor renal function with daily BMP Holding AM spironolactone, lisinopril, lasix initially (6) Mood disorder: Plan: Continue Xanax as needed, bupropion (7) Hypokalemia: Plan: Replete and monitor (8) Hypertension: Plan: Normotensive. Continue carvedilol with parameters, holding lisinopril due to JW (9) Hyponatremia: Plan: Pseudohyponatremia given elevated bs on admission Na 136 Cont. to monitor (10) Hyperglycemia: Plan: Denies formal dx of DM II but BSG >300. A1c ordeed for AM. Given SQ Lantus HS, SSI AC HS DVT Ppx: SQ heparin Code status: FULL PCP: Dr. Ruiz Dispo: Admitted to PCU Admission and Anticipated Discharge Date Admission Date: March 22, 2022 Subjective Pt seen in follow-up of right lower extremity cellulitis, positive COVID-19 Reports feeling somewhat better. Has some loose stools. Stool studies obtained. No chest pain or shortness of breath, no cough. No abdominal pain. Review of Systems Review of Systems: All systems reviewed & are unremarkable except as noted in Subjective Physical Exam Constitutional: WD/WN, vitals as above (obese F in NAD) Eyes: PERRL, conjunctivae normal, anicteric sclerae ENMT: external ear and nose normal, oropharynx normal Neck: + thick neck Respiratory: normal respiratory effort, lungs clear to auscultation Cardiovascular: RRR, no murmur, no edema Chest (Breasts): Chest: normal inspection of chest Gastrointestinal (Abdomen): normal bowel sounds, soft, nontender, no hepatosplenomegaly Musculoskeletal: no cyanosis or clubbing, extremities motor strength 5/5 Skin: + erythema RLE erythema Neurologic: PERRL, EOMI, accommodation nl, no face palsy, no dysarthria Psychiatric: A+Ox3, euthymic affect Genitourinary: no CVA tenderness Results & Data Results & Data ([facility]) Vital Signs (Past 12 Hours) Vital Signs Temp Pulse Pulse Resp BP BP Pulse Ox 03/23/22 16:00 36.6 C 89 16 119/66 97 03/23/22 13:51 77 03/23/22 13:43 03/23/22 11:45 36.8 C 78 16 113/59 L 96 03/23/22 10:00 94 03/23/22 07:37 37.6 C H 78 16 93/53 L 97 03/23/22 07:11 37.6 C H 97 H 18 100/55 L 97 O2 Del Method O2 Flow Rate 03/23/22 16:00 Room Air 03/23/22 13:51 03/23/22 13:43 Room Air 03/23/22 11:45 Room Air 03/23/22 10:00 Room Air 03/23/22 07:37 Nasal Cannula 3 03/23/22 07:11 Nasal Cannula 3 Laboratory Results 03/23/22 03/23/22 03/23/22 Range/Units Unknown 16:37 11:42 WBC (4.8-10.8) K/ul RBC (3.93-5.22) M/uL Hgb (12.0-16.0) g/dl Hct (34.1-44.9) % MCV (80.0-100.0) fL MCH (25.0-34.0) pg MCHC (32.0-36.0) g/dL RDW Std Deviation (36.4-46.3) fL RDW Coeff of Marj (11.5-14.5) % Plt Count (130-400) K/uL MPV (9.4-12.3) fL Sodium (136-145) mmol/L Potassium (3.5-5.1) mmol/L Chloride (98-107) mmol/L Carbon Dioxide (21-32) mmol/L Anion Gap (3-11) BUN (6-23) mg/dl Creatinine (0.6-1.2) mg/dl Est Cr Clr Drug Dosing ml/min Est GFR ( Amer) ml/min Est GFR (Non-Af Amer) ml/min BUN/Creatinine Ratio (10-20) Glucose (70-99(Fasting)) mg/dl POC Glucose 109 H 123 H (70-99) mg/dl Estimat Average Glucose mg/dl Hemoglobin A1c (4.5-5.6) % Lactate (0.4-2.0) mmol/L Calcium (8.5-10.1) mg/dl Magnesium (1.7-2.4) mg/dl Total Bilirubin (0.2-1.0) mg/dl AST (13-39) U/L ALT (7-52) U/L Alkaline Phosphatase (34-104) U/L Total Creatine Kinase (26-192) U/L Troponin I High Sens (0-14) pg/ml Total Protein (6.0-8.3) gm/dl Albumin (3.4-5.0) gm/dl Globulin (2.5-4.0) gm/dl Albumin/Globulin Ratio (0.9-2) Urine Color Urine Appearance (Clear) Urine pH (4.5-7.5) Ur Specific [place] (1.000-1.030) Urine Protein (Negative) Urine Glucose (UA) (Negative) Urine Ketones (Negative) Urine Blood (Negative) Urine Nitrite (Negative) Urine Bilirubin (Negative) Urine Urobilinogen (Negative) Ur Leukocyte Esterase (Negative) Urine WBC (Auto) (0-5) /hpf Urine RBC (Auto) (0-4) /hpf U Hyaline Cast (Auto) (0-5) /lpf U Epithel Cells (Auto) (0-5) /lpf Urine Bacteria (Auto) (Negative) Stl C. cayetanensis PCR Not Detected (NotDetected) Stool Rotavirus A PCR Not Detected (NotDetected) Stl Adenov F 40/41 PCR Not Detected (NotDetected) Stool Astrovirus (PCR) Not Detected (NotDetected) Stool Campylobacter PCR Not Detected (NotDetected) Stl C. diff Tox B Gene Negative Cdiff Gene (Neg) Stool Cryptosporidium PCR Not Detected (NotDetected) Stl E.coli Shiga Tox PCR Not Detected (NotDetected) Stl Enterotoxigenic E PCR Not Detected (NotDetected) Stool EPEC (PCR) DETECTED A* (NotDetected) Stool EAEC (PCR) Not Detected (NotDetected) Stl E. histolytica PCR Not Detected (NotDetected) Stool Giardia Lamblia PCR Not Detected (NotDetected) Stool Salmonella PCR Not Detected (NotDetected) Stool Sapovirus (PCR) Not Detected (NotDetected) Stl P. shigelloides PCR Not Detected (NotDetected) Stl Shigella/EIEC PCR Not Detected (NotDetected) St Y.enterocolitica PCR Not Detected (NotDetected) Stool Vibrio (PCR) Not Detected (NotDetected) Stl Vibrio cholerae PCR Not Detected (NotDetected) Stl Norovirus GI/GII PCR Not Detected (NotDetected) SARS-CoV-2, RNA, NAAT (NEGATIVE) 03/23/22 03/23/22 03/23/22 Range/Units 07:35 07:10 06:02 WBC (4.8-10.8) K/ul RBC (3.93-5.22) M/uL Hgb (12.0-16.0) g/dl Hct (34.1-44.9) % MCV (80.0-100.0) fL MCH (25.0-34.0) pg MCHC (32.0-36.0) g/dL RDW Std Deviation (36.4-46.3) fL RDW Coeff of Marj (11.5-14.5) % Plt Count (130-400) K/uL MPV (9.4-12.3) fL Sodium (136-145) mmol/L Potassium (3.5-5.1) mmol/L Chloride (98-107) mmol/L Carbon Dioxide (21-32) mmol/L Anion Gap (3-11) BUN (6-23) mg/dl Creatinine (0.6-1.2) mg/dl Est Cr Clr Drug Dosing ml/min Est GFR ( Amer) ml/min Est GFR (Non-Af Amer) ml/min BUN/Creatinine Ratio (10-20) Glucose (70-99(Fasting)) mg/dl POC Glucose 129 H 121 H (70-99) mg/dl Estimat Average Glucose 143 mg/dl Hemoglobin A1c 6.6 H (4.5-5.6) % Lactate (0.4-2.0) mmol/L Calcium (8.5-10.1) mg/dl Magnesium (1.7-2.4) mg/dl Total Bilirubin (0.2-1.0) mg/dl AST (13-39) U/L ALT (7-52) U/L Alkaline Phosphatase (34-104) U/L Total Creatine Kinase (26-192) U/L Troponin I High Sens (0-14) pg/ml Total Protein (6.0-8.3) gm/dl Albumin (3.4-5.0) gm/dl Globulin (2.5-4.0) gm/dl Albumin/Globulin Ratio (0.9-2) Urine Color Urine Appearance (Clear) Urine pH (4.5-7.5) Ur Specific [place] (1.000-1.030) Urine Protein (Negative) Urine Glucose (UA) (Negative) Urine Ketones (Negative) Urine Blood (Negative) Urine Nitrite (Negative) Urine Bilirubin (Negative) Urine Urobilinogen (Negative) Ur Leukocyte Esterase (Negative) Urine WBC (Auto) (0-5) /hpf Urine RBC (Auto) (0-4) /hpf U Hyaline Cast (Auto) (0-5) /lpf U Epithel Cells (Auto) (0-5) /lpf Urine Bacteria (Auto) (Negative) Stl C. cayetanensis PCR (NotDetected) Stool Rotavirus A PCR (NotDetected) Stl Adenov F 40/41 PCR (NotDetected) Stool Astrovirus (PCR) (NotDetected) Stool Campylobacter PCR (NotDetected) Stl C. diff Tox B Gene (Neg) Stool Cryptosporidium PCR (NotDetected) Stl E.coli Shiga Tox PCR (NotDetected) Stl Enterotoxigenic E PCR (NotDetected) Stool EPEC (PCR) (NotDetected) Stool EAEC (PCR) (NotDetected) Stl E. histolytica PCR (NotDetected) Stool Giardia Lamblia PCR (NotDetected) Stool Salmonella PCR (NotDetected) Stool Sapovirus (PCR) (NotDetected) Stl P. shigelloides PCR (NotDetected) Stl Shigella/EIEC PCR (NotDetected) St Y.enterocolitica PCR (NotDetected) Stool Vibrio (PCR) (NotDetected) Stl Vibrio cholerae PCR (NotDetected) Stl Norovirus GI/GII PCR (NotDetected) SARS-CoV-2, RNA, NAAT (NEGATIVE) 03/23/22 03/23/22 03/23/22 Range/Units 06:02 06:02 04:54 WBC 16.19 H (4.8-10.8) K/ul RBC 3.60 L (3.93-5.22) M/uL Hgb 10.8 L (12.0-16.0) g/dl Hct 33.3 L (34.1-44.9) % MCV 92.5 (80.0-100.0) fL MCH 30.0 (25.0-34.0) pg MCHC 32.4 (32.0-36.0) g/dL RDW Std Deviation 46.1 (36.4-46.3) fL RDW Coeff of Marj 13.5 (11.5-14.5) % Plt Count 200 (130-400) K/uL MPV 10.5 (9.4-12.3) fL Sodium 136 (136-145) mmol/L Potassium 3.7 (3.5-5.1) mmol/L Chloride 103 (98-107) mmol/L Carbon Dioxide 27 (21-32) mmol/L Anion Gap 6 (3-11) BUN 18 (6-23) mg/dl Creatinine 1.18 (0.6-1.2) mg/dl Est Cr Clr Drug Dosing 46.6 ml/min Est GFR ( Amer) 51.5 ml/min Est GFR (Non-Af Amer) 44.5 ml/min BUN/Creatinine Ratio 15.3 (10-20) Glucose 133 H (70-99(Fasting)) mg/dl POC Glucose 165 H (70-99) mg/dl Estimat Average Glucose mg/dl Hemoglobin A1c (4.5-5.6) % Lactate (0.4-2.0) mmol/L Calcium 8.3 L (8.5-10.1) mg/dl Magnesium (1.7-2.4) mg/dl Total Bilirubin (0.2-1.0) mg/dl AST (13-39) U/L ALT (7-52) U/L Alkaline Phosphatase (34-104) U/L Total Creatine Kinase (26-192) U/L Troponin I High Sens (0-14) pg/ml Total Protein (6.0-8.3) gm/dl Albumin (3.4-5.0) gm/dl Globulin (2.5-4.0) gm/dl Albumin/Globulin Ratio (0.9-2) Urine Color Urine Appearance (Clear) Urine pH (4.5-7.5) Ur Specific [place] (1.000-1.030) Urine Protein (Negative) Urine Glucose (UA) (Negative) Urine Ketones (Negative) Urine Blood (Negative) Urine Nitrite (Negative) Urine Bilirubin (Negative) Urine Urobilinogen (Negative) Ur Leukocyte Esterase (Negative) Urine WBC (Auto) (0-5) /hpf Urine RBC (Auto) (0-4) /hpf U Hyaline Cast (Auto) (0-5) /lpf U Epithel Cells (Auto) (0-5) /lpf Urine Bacteria (Auto) (Negative) Stl C. cayetanensis PCR (NotDetected) Stool Rotavirus A PCR (NotDetected) Stl Adenov F 40/41 PCR (NotDetected) Stool Astrovirus (PCR) (NotDetected) Stool Campylobacter PCR (NotDetected) Stl C. diff Tox B Gene (Neg) Stool Cryptosporidium PCR (NotDetected) Stl E.coli Shiga Tox PCR (NotDetected) Stl Enterotoxigenic E PCR (NotDetected) Stool EPEC (PCR) (NotDetected) Stool EAEC (PCR) (NotDetected) Stl E. histolytica PCR (NotDetected) Stool Giardia Lamblia PCR (NotDetected) Stool Salmonella PCR (NotDetected) Stool Sapovirus (PCR) (NotDetected) Stl P. shigelloides PCR (NotDetected) Stl Shigella/EIEC PCR (NotDetected) St Y.enterocolitica PCR (NotDetected) Stool Vibrio (PCR) (NotDetected) Stl Vibrio cholerae PCR (NotDetected) Stl Norovirus GI/GII PCR (NotDetected) SARS-CoV-2, RNA, NAAT (NEGATIVE) 03/23/22 03/23/22 03/22/22 Range/Units 00:15 00:00 22:29 WBC (4.8-10.8) K/ul RBC (3.93-5.22) M/uL Hgb (12.0-16.0) g/dl Hct (34.1-44.9) % MCV (80.0-100.0) fL MCH (25.0-34.0) pg MCHC (32.0-36.0) g/dL RDW Std Deviation (36.4-46.3) fL RDW Coeff of Marj (11.5-14.5) % Plt Count (130-400) K/uL MPV (9.4-12.3) fL Sodium (136-145) mmol/L Potassium (3.5-5.1) mmol/L Chloride (98-107) mmol/L Carbon Dioxide (21-32) mmol/L Anion Gap (3-11) BUN (6-23) mg/dl Creatinine (0.6-1.2) mg/dl Est Cr Clr Drug Dosing ml/min Est GFR ( Amer) ml/min Est GFR (Non-Af Amer) ml/min BUN/Creatinine Ratio (10-20) Glucose (70-99(Fasting)) mg/dl POC Glucose 207 H 190 H (70-99) mg/dl Estimat Average Glucose mg/dl Hemoglobin A1c (4.5-5.6) % Lactate (0.4-2.0) mmol/L Calcium (8.5-10.1) mg/dl Magnesium (1.7-2.4) mg/dl Total Bilirubin (0.2-1.0) mg/dl AST (13-39) U/L ALT (7-52) U/L Alkaline Phosphatase (34-104) U/L Total Creatine Kinase (26-192) U/L Troponin I High Sens 14.8 H (0-14) pg/ml Total Protein (6.0-8.3) gm/dl Albumin (3.4-5.0) gm/dl Globulin (2.5-4.0) gm/dl Albumin/Globulin Ratio (0.9-2) Urine Color Urine Appearance (Clear) Urine pH (4.5-7.5) Ur Specific [place] (1.000-1.030) Urine Protein (Negative) Urine Glucose (UA) (Negative) Urine Ketones (Negative) Urine Blood (Negative) Urine Nitrite (Negative) Urine Bilirubin (Negative) Urine Urobilinogen (Negative) Ur Leukocyte Esterase (Negative) Urine WBC (Auto) (0-5) /hpf Urine RBC (Auto) (0-4) /hpf U Hyaline Cast (Auto) (0-5) /lpf U Epithel Cells (Auto) (0-5) /lpf Urine Bacteria (Auto) (Negative) Stl C. cayetanensis PCR (NotDetected) Stool Rotavirus A PCR (NotDetected) Stl Adenov F 40/41 PCR (NotDetected) Stool Astrovirus (PCR) (NotDetected) Stool Campylobacter PCR (NotDetected) Stl C. diff Tox B Gene (Neg) Stool Cryptosporidium PCR (NotDetected) Stl E.coli Shiga Tox PCR (NotDetected) Stl Enterotoxigenic E PCR (NotDetected) Stool EPEC (PCR) (NotDetected) Stool EAEC (PCR) (NotDetected) Stl E. histolytica PCR (NotDetected) Stool Giardia Lamblia PCR (NotDetected) Stool Salmonella PCR (NotDetected) Stool Sapovirus (PCR) (NotDetected) Stl P. shigelloides PCR (NotDetected) Stl Shigella/EIEC PCR (NotDetected) St Y.enterocolitica PCR (NotDetected) Stool Vibrio (PCR) (NotDetected) Stl Vibrio cholerae PCR (NotDetected) Stl Norovirus GI/GII PCR (NotDetected) SARS-CoV-2, RNA, NAAT (NEGATIVE) 03/22/22 03/22/22 03/22/22 Range/Units 20:07 18:18 18:13 WBC (4.8-10.8) K/ul RBC (3.93-5.22) M/uL Hgb (12.0-16.0) g/dl Hct (34.1-44.9) % MCV (80.0-100.0) fL MCH (25.0-34.0) pg MCHC (32.0-36.0) g/dL RDW Std Deviation (36.4-46.3) fL RDW Coeff of Marj (11.5-14.5) % Plt Count (130-400) K/uL MPV (9.4-12.3) fL Sodium (136-145) mmol/L Potassium (3.5-5.1) mmol/L Chloride (98-107) mmol/L Carbon Dioxide (21-32) mmol/L Anion Gap (3-11) BUN (6-23) mg/dl Creatinine (0.6-1.2) mg/dl Est Cr Clr Drug Dosing ml/min Est GFR ( Amer) ml/min Est GFR (Non-Af Amer) ml/min BUN/Creatinine Ratio (10-20) Glucose (70-99(Fasting)) mg/dl POC Glucose (70-99) mg/dl Estimat Average Glucose mg/dl Hemoglobin A1c (4.5-5.6) % Lactate 1.1 (0.4-2.0) mmol/L Calcium (8.5-10.1) mg/dl Magnesium (1.7-2.4) mg/dl Total Bilirubin (0.2-1.0) mg/dl AST (13-39) U/L ALT (7-52) U/L Alkaline Phosphatase (34-104) U/L Total Creatine Kinase (26-192) U/L Troponin I High Sens (0-14) pg/ml Total Protein (6.0-8.3) gm/dl Albumin (3.4-5.0) gm/dl Globulin (2.5-4.0) gm/dl Albumin/Globulin Ratio (0.9-2) Urine Color Dark Yellow Urine Appearance Clear (Clear) Urine pH 5.5 (4.5-7.5) Ur Specific [place] 1.020 (1.000-1.030) Urine Protein 2+ H (Negative) Urine Glucose (UA) Trace H (Negative) Urine Ketones Negative (Negative) Urine Blood 1+ H (Negative) Urine Nitrite Negative (Negative) Urine Bilirubin Negative (Negative) Urine Urobilinogen Negative (Negative) Ur Leukocyte Esterase Negative (Negative) Urine WBC (Auto) 1-5 (0-5) /hpf Urine RBC (Auto) 0-4 (0-4) /hpf U Hyaline Cast (Auto) 1-5 (0-5) /lpf U Epithel Cells (Auto) 10-20 H (0-5) /lpf Urine Bacteria (Auto) Negative (Negative) Stl C. cayetanensis PCR (NotDetected) Stool Rotavirus A PCR (NotDetected) Stl Adenov F 40/41 PCR (NotDetected) Stool Astrovirus (PCR) (NotDetected) Stool Campylobacter PCR (NotDetected) Stl C. diff Tox B Gene (Neg) Stool Cryptosporidium PCR (NotDetected) Stl E.coli Shiga Tox PCR (NotDetected) Stl Enterotoxigenic E PCR (NotDetected) Stool EPEC (PCR) (NotDetected) Stool EAEC (PCR) (NotDetected) Stl E. histolytica PCR (NotDetected) Stool Giardia Lamblia PCR (NotDetected) Stool Salmonella PCR (NotDetected) Stool Sapovirus (PCR) (NotDetected) Stl P. shigelloides PCR (NotDetected) Stl Shigella/EIEC PCR (NotDetected) St Y.enterocolitica PCR (NotDetected) Stool Vibrio (PCR) (NotDetected) Stl Vibrio cholerae PCR (NotDetected) Stl Norovirus GI/GII PCR (NotDetected) SARS-CoV-2, RNA, NAAT POSITIVE A* (NEGATIVE) 03/22/22 Range/Units 16:30 WBC (4.8-10.8) K/ul RBC (3.93-5.22) M/uL Hgb (12.0-16.0) g/dl Hct (34.1-44.9) % MCV (80.0-100.0) fL MCH (25.0-34.0) pg MCHC (32.0-36.0) g/dL RDW Std Deviation (36.4-46.3) fL RDW Coeff of Marj (11.5-14.5) % Plt Count (130-400) K/uL MPV (9.4-12.3) fL Sodium 130 L (136-145) mmol/L Potassium 3.3 L (3.5-5.1) mmol/L Chloride 97 L (98-107) mmol/L Carbon Dioxide 23 (21-32) mmol/L Anion Gap 10 (3-11) BUN 17 (6-23) mg/dl Creatinine 1.30 H (0.6-1.2) mg/dl Est Cr Clr Drug Dosing 41.5 ml/min Est GFR ( Amer) 45.8 ml/min Est GFR (Non-Af Amer) 39.5 ml/min BUN/Creatinine Ratio 13.1 (10-20) Glucose 304 H* (70-99(Fasting)) mg/dl POC Glucose (70-99) mg/dl Estimat Average Glucose mg/dl Hemoglobin A1c (4.5-5.6) % Lactate (0.4-2.0) mmol/L Calcium 8.9 (8.5-10.1) mg/dl Magnesium 1.4 L (1.7-2.4) mg/dl Total Bilirubin 1.5 H (0.2-1.0) mg/dl AST 11 L (13-39) U/L ALT 7 (7-52) U/L Alkaline Phosphatase 101 (34-104) U/L Total Creatine Kinase 43 (26-192) U/L Troponin I High Sens 16.4 H (0-14) pg/ml Total Protein 7.2 (6.0-8.3) gm/dl Albumin 3.9 (3.4-5.0) gm/dl Globulin 3.3 (2.5-4.0) gm/dl Albumin/Globulin Ratio 1.2 (0.9-2) Urine Color Urine Appearance (Clear) Urine pH (4.5-7.5) Ur Specific [place] (1.000-1.030) Urine Protein (Negative) Urine Glucose (UA) (Negative) Urine Ketones (Negative) Urine Blood (Negative) Urine Nitrite (Negative) Urine Bilirubin (Negative) Urine Urobilinogen (Negative) Ur Leukocyte Esterase (Negative) Urine WBC (Auto) (0-5) /hpf Urine RBC (Auto) (0-4) /hpf U Hyaline Cast (Auto) (0-5) /lpf U Epithel Cells (Auto) (0-5) /lpf Urine Bacteria (Auto) (Negative) Stl C. cayetanensis PCR (NotDetected) Stool Rotavirus A PCR (NotDetected) Stl Adenov F 40/41 PCR (NotDetected) Stool Astrovirus (PCR) (NotDetected) Stool Campylobacter PCR (NotDetected) Stl C. diff Tox B Gene (Neg) Stool Cryptosporidium PCR (NotDetected) Stl E.coli Shiga Tox PCR (NotDetected) Stl Enterotoxigenic E PCR (NotDetected) Stool EPEC (PCR) (NotDetected) Stool EAEC (PCR) (NotDetected) Stl E. histolytica PCR (NotDetected) Stool Giardia Lamblia PCR (NotDetected) Stool Salmonella PCR (NotDetected) Stool Sapovirus (PCR) (NotDetected) Stl P. shigelloides PCR (NotDetected) Stl Shigella/EIEC PCR (NotDetected) St Y.enterocolitica PCR (NotDetected) Stool Vibrio (PCR) (NotDetected) Stl Vibrio cholerae PCR (NotDetected) Stl Norovirus GI/GII PCR (NotDetected) SARS-CoV-2, RNA, NAAT (NEGATIVE) Medications Administered Current Inpatient Medications Acetaminophen (Acetaminophen 325 Mg Tab) 650 mg PO Q4H PRN PRN Reason: Pain or Fever Stop: 04/21/22 21:15 Last Admin: 03/23/22 16:32 Dose: 650 mg Albuterol (Albuterol 0.083% Nebu Soln 3 Ml Vial) 2.5 mg INH Q4H PRN; Protocol PRN Reason: Wheezing Stop: 04/21/22 21:15 Allopurinol (Allopurinol 300 Mg Tab) 300 mg PO QAM HUMAIRA Stop: 04/22/22 08:59 Last Admin: 03/23/22 08:48 Dose: 300 mg Alprazolam (Alprazolam 0.25 Mg Tablet) 0.25 mg PO TID PRN PRN Reason: Anxiety/insomnia Stop: 04/21/22 21:15 Aspirin (Aspirin 81 Mg Ectab) 81 mg PO DAILY HUMAIRA Stop: 04/22/22 08:59 Last Admin: 03/23/22 08:48 Dose: 81 mg Bupropion HCl (Bupropion Xl 150 Mg Tabcr) 150 mg PO DAILY HUMAIRA Stop: 04/22/22 08:59 Last Admin: 03/23/22 08:48 Dose: 150 mg Carvedilol (Carvedilol 12.5 Mg Tab) 12.5 mg PO BID HUMAIRA Stop: 04/21/22 21:15 Last Admin: 03/23/22 08:47 Dose: Not Given Dextrose (Dextrose 50% 50 Ml Syringe) 25 - 50 ml IV UD PRN; Protocol PRN Reason: Hypoglycemia Protocol Stop: 04/21/22 21:15 Famotidine (Famotidine 40 Mg Tablet) 40 mg PO BID HUMAIRA Stop: 04/21/22 21:15 Last Admin: 03/23/22 08:47 Dose: 40 mg Furosemide (Furosemide 40 Mg Tab) 40 mg PO BID HUMAIRA Stop: 04/21/22 21:15 Last Admin: 03/22/22 22:24 Dose: 40 mg Gabapentin (Gabapentin 600 Mg Tab) 600 mg PO BID HUMAIRA Stop: 04/21/22 21:15 Last Admin: 03/23/22 08:47 Dose: 600 mg Gabapentin (Gabapentin 300 Mg Cap) 300 mg PO DAILY@1200 HUMAIRA Stop: 04/22/22 11:59 Last Admin: 03/23/22 12:46 Dose: Not Given Glucagon (Glucagon For Inj 1 Mg Vial) 1 mg SQ UD PRN; Protocol PRN Reason: Hypoglycemia Protocol Stop: 04/21/22 21:15 Glucose (Glucose 40% Gel 15 Gm Tube) 15 - 30 gm PO UD PRN; Protocol PRN Reason: Hypoglycemia Protocol Stop: 04/21/22 21:15 Glucose (Glucose 10 Tab/Tube) 4 - 8 tab PO UD PRN; Protocol PRN Reason: Hypoglycemia Treatment Stop: 04/21/22 21:15 Heparin Sodium (Porcine) (Heparin Sod 5,000 Unit/0.5 Ml Vial) 5,000 units SQ Q8 HUMAIRA Stop: 04/21/22 21:59 Last Admin: 03/23/22 12:48 Dose: 5,000 units Daptomycin 300 mg/ Syringe 6 mls @ 3 mls/min IV Q24H [facility]; Protocol Stop: 03/29/22 19:59 Last Admin: 03/22/22 20:53 Dose: 3 mls/min Cefepime HCl 1,000 mg/ Syringe 10 mls @ 5 mls/min IV Q12H [facility]; Protocol Stop: 03/29/22 09:01 Last Admin: 03/23/22 08:46 Dose: 5 mls/min Insulin Aspart (Insulin Aspart Per Unit) 0 units SC ACHS [facility] Stop: 04/21/22 21:15 Last Admin: 03/23/22 13:07 Dose: 2 units Lactobacillus Acidophilus (Advanced Probiotic 1250 Mg Capsule) 2 cap PO DAILY [facility] Stop: 04/22/22 10:14 Last Admin: 03/23/22 12:45 Dose: 2 cap Lisinopril (Lisinopril 2.5 Mg Tab) 2.5 mg PO QAM [facility] Stop: 04/22/22 08:59 Mirtazapine (Mirtazapine Tab 15 Mg Tab) 30 mg PO HS [facility] Stop: 04/21/22 21:15 Last Admin: 03/22/22 22:24 Dose: 30 mg Miscellaneous (Carbohydrates For Hypoglycemia ) 15 - 30 gm PO UD PRN PRN Reason: Hypoglycemia Protocol Stop: 04/21/22 21:15 Ondansetron HCl (Ondansetron Inj 2 Mg/Ml 2 Ml Vial) 4 mg IV Q6H PRN PRN Reason: Nausea Stop: 04/21/22 21:15 Polyethylene Glycol (Polyethylene (Miralax) 17 Gm Pack) 17 gm PO DAILY PRN PRN Reason: Constipation Stop: 04/21/22 21:15 Potassium Chloride (Potassium Chloride Crtab 20 Meq Tabcr) 20 meq PO BID [facility] Stop: 04/21/22 21:15 Last Admin: 03/23/22 08:46 Dose: 20 meq Spironolactone (Spironolactone 25 Mg Tab) 25 mg PO QAM [facility] Stop: 04/22/22 08:59 Venlafaxine HCl (Venlafaxine Hcl Xr 150 Mg Capxr) 150 mg PO QAM [facility] Stop: 04/22/22 08:59 Last Admin: 03/23/22 08:48 Dose: 150 mg
[2022-03-23 20:02] LABS: A calco-baum cmplx NotReported Not Detected (NotDetected); Bact fragilis Not Reported Not Detected (NotDetected); C auris Not Reported Not Detected (NotDetected); Calbicans Not Reported Not Detected (NotDetected); Candida glabrata Not Reported Not Detected (NotDetected); Candida krusei Not Reported Not Detected (NotDetected); Cneoformans/gatti Not Reported Not Detected (NotDetected); Cparapsilosis Not Reported Not Detected (NotDetected); Ctropicalis Not Reported Not Detected (NotDetected); E cloacae compx Not Reported Not Detected (NotDetected); Efaecalis Not Reported Not Detected (NotDetected); Efaecium Not Reported Not Detected (NotDetected); Enterobacterales Not Reported Not Detected (NotDetected); Escherichia coli Not Reported Not Detected (NotDetected); H influenzae Not Reported Not Detected (NotDetected); K aerogenes Not Reported Not Detected (NotDetected); Koxytoca Not Reported Not Detected (NotDetected); Kpneumoniae grp Not Reported Not Detected (NotDetected); Lmonocyt Not Reported Not Detected (NotDetected); N meningitidis Not Reported Not Detected (NotDetected); P aeruginosa Not Reported Not Detected (NotDetected); Proteus spp Not Reported Not Detected (NotDetected); Salmonella spp Not Reported Not Detected (NotDetected); Smarcescens Not Reported Not Detected (NotDetected); Staph lugdunensis Not Reported Not Detected (NotDetected); Staphaureus Not Reported Not Detected (NotDetected); Staphepi Not Reported DETECTED (NotDetected); Staphylococcus epidermidis DETECTED (NotDetected); Staphylococcus spp. DETECTED (NotDetected); Stenmaltophilia Not Reported Not Detected (NotDetected); Strep agal(GrpB) Not Reported Not Detected (NotDetected); Strep pneum Not Reported Not Detected (NotDetected); Strep pyog (GrpA) Not Reported Not Detected (NotDetected); Strep spp Not Reported Not Detected (NotDetected); mecAC Resistant Gene Not Detected (NotDetected)
[2022-03-23 20:36] LABS: Staph spp. Not Reported DETECTED (NotDetected)
[2022-03-23] MEDS: CEFEPIME 2,000 MG in SYRINGE 0 ML IV SCH (21:07)
[2022-03-23] MEDS: MIRTAZAPINE TAB 15 MG TAB PO SCH (21:08)
[2022-03-23] MEDS: DAPTOmycin 300 MG in SYRINGE 0 ML IV SCH (21:24)
[2022-03-24] MEDS: HEPARIN SOD 5,000 UNIT/0.5 ML VIAL SQ SCH ×3 (06:30→21:21)
[2022-03-24 06:45] LABS: Hematocrit (blood only) 29.6 % (34.1-44.9); Hemoglobin 9.8 g/dl (12.0-16.0); Mean Corpuscular Hgb Conc 33.1 g/dL (32.0-36.0); Mean Corpuscular Volume 90.5 fL (80.0-100.0); Mean Platelet Volume 10.2 fL (9.4-12.3); Platelet Count 173 K/uL (130-400); RDW Coefficient of Variation 13.4 % (11.5-14.5); RDW Standard Deviation 44.6 fL (36.4-46.3); Red Blood Count 3.27 M/uL (3.93-5.22); White Blood Count 12.19 K/ul (4.8-10.8)
[2022-03-24 07:07] LABS: Calcium 8.7 mg/dl (8.5-10.1); Creatinine Clr Calc Pharmacy 47.4 ml/min; Est GFR (African American) 52.6 ml/min; Est GFR (Non-African American) 45.4 ml/min; Potassium 4.4 mmol/L (3.5-5.1)
[2022-03-24] MEDS: POTASSIUM CHLORIDE CRTAB 20 MEQ TABCR PO SCH ×2 (08:01→20:55)
[2022-03-24] MEDS: FAMOTIDINE 40 MG TABLET PO SCH ×2 (08:02→20:56)
[2022-03-24] MEDS: buPROPion XL 150 MG TABCR PO SCH (08:02)
[2022-03-24] MEDS: carvediloL 12.5 MG TAB PO SCH ×2 (08:02→20:53)
[2022-03-24] MEDS: VENLAFAXINE HCL XR 150 MG CAPXR PO SCH (08:02)
[2022-03-24] MEDS: ADVANCED PROBIOTIC 1250 MG CAPSULE PO SCH (08:03)
[2022-03-24] MEDS: allopurinoL 300 MG TAB PO SCH (08:03)
[2022-03-24] MEDS: ASPIRIN 81 MG ECTAB PO SCH (08:03)
[2022-03-24] MEDS: GABAPENTIN 600 MG TAB PO SCH ×2 (08:05→20:56)
[2022-03-24] MEDS: CEFEPIME 2,000 MG in SYRINGE 0 ML IV SCH ×2 (08:25→20:48)
[2022-03-24] MEDS: INSULIN ASPART PER UNIT SC SCH ×4 (08:46→20:56)
[2022-03-24] MEDS: GABAPENTIN 300 MG CAP PO SCH (12:30)
[2022-03-24] MEDS ORDERED: FUROSEMIDE INJ 20 MG/2 ML VIAL IV ONE (19:30)
[2022-03-24] MEDS: DAPTOmycin 300 MG in SYRINGE 0 ML IV SCH (19:45)
--- NOTE | 2022-03-24 20:16 | Hospitalist Progress Note ---
Date of Service March 24, 2022 Assessment & Plan (1) Sepsis: (2) Cellulitis of right leg: Plan: This is a 76-year-old female with PMH of chronic diastolic heart failure, left bundle branch block, hypertension, CKD 3, mood disorder, IBS and other medical problems listed below who presents with daughter for concerns of confusion and decreased oral intake was found to have sepsis 2/2 RLE cellulitis and COVID-19 infection. Febrile at 39.5 C, leukocytosis of 19.8 2K, lactate within normal range Cefepime started in ED. Continue, added daptomycin for broad-spectrum coverage Foot x-ray ordered to evaluate for heel osteomyelitis - no osteo WBC down to 12K, afebrile now (3) COVID-19: Plan: Saturating without issue on room air. No shortness of breath Isolation precautions (4) CHF (congestive heart failure): Plan: Chest x-ray with no acute process. Resume lasix as appropriate EPEC diarrhea on stool studies - pt attributed diarrhea to IBS -reports stools improved -pt on Abx for cellulitis, as above (5) JW (acute kidney injury): Plan: Cr 1.3 (baseline ~0.83) in setting of poor p.o. intake, infection Monitor renal function with daily BMP Holding spironolactone, lisinopril, lasix initially Cr improved at 1.2 lasix to be resumed for LE edema, hx of CHF (6) Mood disorder: Plan: Continue Xanax as needed, bupropion (7) Hypokalemia: Plan: Replete and monitor (8) Hypertension: Plan: Normotensive. Continue carvedilol with parameters, holding lisinopril due to JW (9) Hyponatremia: Plan: Pseudohyponatremia given elevated bs on admission Na 136 Cont. to monitor (10) Hyperglycemia: Plan: Denies formal dx of DM II but BSG >300. Current A1c 6.6%. Given SQ Lantus HS, S SI AC HS DVT Ppx: SQ heparin Code status: FULL PCP: Dr. Ruiz Dispo: Admitted to PCU Admission and Anticipated Discharge Date Admission Date: March 22, 2022 Subjective Pt seen in follow-up of right lower extremity cellulitis, positive COVID-19, EPEC diarrhea Reports feeling somewhat better. Has some loose stools but improved. No chest pain or shortness of breath, no cough. No abdominal pain. Review of Systems Review of Systems: All systems reviewed & are unremarkable except as noted in Subjective Physical Exam Physical Exam: Constitutional:I obese F in NAD Eyes: PERRL, EOMI, conju nctivae normal, an icteric sclerae ENMT: external ear and n ose normal, oropha rynx normal Neck: + thick neck Respiratory: normal respiratory effort, lungs jignesh ar to auscultation Cardiovascular:I RRR, no murmur, no edema Chest (Breasts): Chest: normal insp ection of chest Gastrointestinal ( Abdomen): normal bowel sound s, soft, nontender Musculoskeletal: extremities motor strength 5/5 Skin: + erythema RLE e rythema Neurologic: PERRL, EOMI, no fa ce palsy, no dysar thria,moves extrem ities Psychiatric: A+Ox3, euthymic af fect Results & Data Results & Data ([facility]) Vital Signs (Past 12 Hours) Vital Signs Temp Pulse Pulse Resp BP Pulse Ox O2 Del Method 03/24/22 19:46 37.0 C 83 18 124/68 96 Room Air 03/24/22 16:17 79 03/24/22 15:54 36.4 C L 73 16 140/78 97 Room Air 03/24/22 11:31 36.6 C 78 16 115/56 L 96 Room Air 03/24/22 10:22 86 03/24/22 09:51 Room Air Laboratory Results 03/24/22 03/24/22 03/24/22 Range/Units 16:41 11:52 07:56 WBC (4.8-10.8) K/ul RBC (3.93-5.22) M/uL Hgb (12.0-16.0) g/dl Hct (34.1-44.9) % MCV (80.0-100.0) fL MCH (25.0-34.0) pg MCHC (32.0-36.0) g/dL RDW Std Deviation (36.4-46.3) fL RDW Coeff of Marj (11.5-14.5) % Plt Count (130-400) K/uL MPV (9.4-12.3) fL Sodium (136-145) mmol/L Potassium (3.5-5.1) mmol/L Chloride (98-107) mmol/L Carbon Dioxide (21-32) mmol/L Anion Gap (3-11) BUN (6-23) mg/dl Creatinine (0.6-1.2) mg/dl Est Cr Clr Drug Dosing ml/min Est GFR ( Amer) ml/min Est GFR (Non-Af Amer) ml/min BUN/Creatinine Ratio (10-20) Glucose (70-99(Fasting)) mg/dl POC Glucose 83 171 H 111 H (70-99) mg/dl Calcium (8.5-10.1) mg/dl Staphylococcus sp PCR (NotDetected) mecA/C-Methicil Resis Gene (NotDetected) Staph epidermidis (PCR) (NotDetected) Bld Cult ID Panel PCR (NotDetected) 03/24/22 03/24/22 03/22/22 Range/Units 06:32 06:32 18:39 WBC 12.19 H (4.8-10.8) K/ul RBC 3.27 L (3.93-5.22) M/uL Hgb 9.8 L (12.0-16.0) g/dl Hct 29.6 L (34.1-44.9) % MCV 90.5 (80.0-100.0) fL MCH 30.0 (25.0-34.0) pg MCHC 33.1 (32.0-36.0) g/dL RDW Std Deviation 44.6 (36.4-46.3) fL RDW Coeff of Marj 13.4 (11.5-14.5) % Plt Count 173 (130-400) K/uL MPV 10.2 (9.4-12.3) fL Sodium 136 (136-145) mmol/L Potassium 4.4 (3.5-5.1) mmol/L Chloride 106 (98-107) mmol/L Carbon Dioxide 26 (21-32) mmol/L Anion Gap 4 (3-11) BUN 22 (6-23) mg/dl Creatinine 1.16 (0.6-1.2) mg/dl Est Cr Clr Drug Dosing 47.4 ml/min Est GFR ( Amer) 52.6 ml/min Est GFR (Non-Af Amer) 45.4 ml/min BUN/Creatinine Ratio 19.0 (10-20) Glucose 101 H (70-99(Fasting)) mg/dl POC Glucose (70-99) mg/dl Calcium 8.7 (8.5-10.1) mg/dl Staphylococcus sp PCR DETECTED A (NotDetected) mecA/C-Methicil Resis Gene Not Detected (NotDetected) Staph epidermidis (PCR) DETECTED A (NotDetected) Bld Cult ID Panel PCR See PCR Comment (NotDetected) Medications Administered Current Inpatient Medications Acetaminophen (Acetaminophen 325 Mg Tab) 650 mg PO Q4H PRN PRN Reason: Pain or Fever Stop: 04/21/22 21:15 Last Admin: 03/23/22 16:32 Dose: 650 mg Albuterol (Albuterol 0.083% Nebu Soln 3 Ml Vial) 2.5 mg INH Q4H PRN; Protocol PRN Reason: Wheezing Stop: 04/21/22 21:15 Allopurinol (Allopurinol 300 Mg Tab) 300 mg PO QAM HUMAIRA Stop: 04/22/22 08:59 Last Admin: 03/24/22 08:03 Dose: 300 mg Alprazolam (Alprazolam 0.25 Mg Tablet) 0.25 mg PO TID PRN PRN Reason: Anxiety/insomnia Stop: 04/21/22 21:15 Aspirin (Aspirin 81 Mg Ectab) 81 mg PO DAILY HUMAIRA Stop: 04/22/22 08:59 Last Admin: 03/24/22 08:03 Dose: 81 mg Bupropion HCl (Bupropion Xl 150 Mg Tabcr) 150 mg PO DAILY HUMAIRA Stop: 04/22/22 08:59 Last Admin: 03/24/22 08:02 Dose: 150 mg Carvedilol (Carvedilol 12.5 Mg Tab) 12.5 mg PO BID HUMAIRA Stop: 04/21/22 21:15 Last Admin: 03/24/22 08:02 Dose: 12.5 mg Dextrose (Dextrose 50% 50 Ml Syringe) 25 - 50 ml IV UD PRN; Protocol PRN Reason: Hypoglycemia Protocol Stop: 04/21/22 21:15 Famotidine (Famotidine 40 Mg Tablet) 40 mg PO BID HUMAIRA Stop: 04/21/22 21:15 Last Admin: 03/24/22 08:02 Dose: 40 mg Furosemide (Furosemide 40 Mg Tab) 40 mg PO BID HUMAIRA Stop: 04/21/22 21:15 Last Admin: 03/22/22 22:24 Dose: 40 mg Gabapentin (Gabapentin 600 Mg Tab) 600 mg PO BID HUMAIRA Stop: 04/21/22 21:15 Last Admin: 03/24/22 08:05 Dose: 600 mg Gabapentin (Gabapentin 300 Mg Cap) 300 mg PO DAILY@1200 HUMAIRA Stop: 04/22/22 11:59 Last Admin: 03/24/22 12:30 Dose: 300 mg Glucagon (Glucagon For Inj 1 Mg Vial) 1 mg SQ UD PRN; Protocol PRN Reason: Hypoglycemia Protocol Stop: 04/21/22 21:15 Glucose (Glucose 40% Gel 15 Gm Tube) 15 - 30 gm PO UD PRN; Protocol PRN Reason: Hypoglycemia Protocol Stop: 04/21/22 21:15 Glucose (Glucose 10 Tab/Tube) 4 - 8 tab PO UD PRN; Protocol PRN Reason: Hypoglycemia Treatment Stop: 04/21/22 21:15 Heparin Sodium (Porcine) (Heparin Sod 5,000 Unit/0.5 Ml Vial) 5,000 units SQ Q8 HUMAIRA Stop: 04/21/22 21:59 Last Admin: 03/24/22 12:30 Dose: 5,000 units Daptomycin 300 mg/ Syringe 6 mls @ 3 mls/min IV Q24H HUMAIRA; Protocol Stop: 03/29/22 19:59 Last Admin: 03/24/22 19:45 Dose: 3 mls/min Cefepime HCl 2,000 mg/ Syringe 20 mls @ 5 mls/min IV Q12H HUMIARA; Protocol Stop: 03/29/22 09:03 Last Admin: 03/24/22 08:25 Dose: 5 mls/min Insulin Aspart (Insulin Aspart Per Unit) 0 units SC ACHS HUMAIRA Stop: 04/21/22 21:15 Last Admin: 03/24/22 18:32 Dose: 4 units Lactobacillus Acidophilus (Advanced Probiotic 1250 Mg Capsule) 2 cap PO DAILY HUMAIRA Stop: 04/22/22 10:14 Last Admin: 03/24/22 08:03 Dose: 2 cap Lisinopril (Lisinopril 2.5 Mg Tab) 2.5 mg PO QAM HUMAIRA Stop: 04/22/22 08:59 Mirtazapine (Mirtazapine Tab 15 Mg Tab) 30 mg PO HS HUMAIRA Stop: 04/21/22 21:15 Last Admin: 03/23/22 21:08 Dose: 30 mg Miscellaneous (Carbohydrates For Hypoglycemia ) 15 - 30 gm PO UD PRN PRN Reason: Hypoglycemia Protocol Stop: 04/21/22 21:15 Ondansetron HCl (Ondansetron Inj 2 Mg/Ml 2 Ml Vial) 4 mg IV Q6H PRN PRN Reason: Nausea Stop: 04/21/22 21:15 Polyethylene Glycol (Polyethylene (Miralax) 17 Gm Pack) 17 gm PO DAILY PRN PRN Reason: Constipation Stop: 04/21/22 21:15 Potassium Chloride (Potassium Chloride Crtab 20 Meq Tabcr) 20 meq PO BID HUMAIRA Stop: 04/21/22 21:15 Last Admin: 03/24/22 08:01 Dose: 20 meq Spironolactone (Spironolactone 25 Mg Tab) 25 mg PO QAM HUMAIRA Stop: 04/22/22 08:59 Venlafaxine HCl (Venlafaxine Hcl Xr 150 Mg Capxr) 150 mg PO QAM HUMAIRA Stop: 04/22/22 08:59 Last Admin: 03/24/22 08:02 Dose: 150 mg
[2022-03-24] MEDS: MIRTAZAPINE TAB 15 MG TAB PO SCH (20:55)
[2022-03-25] MEDS: HEPARIN SOD 5,000 UNIT/0.5 ML VIAL SQ SCH ×3 (05:57→20:04)
--- NOTE | 2022-03-25 08:52 | Hospitalist Progress Note ---
Date of Service March 25, 2022 Assessment & Plan (1) Sepsis: (2) Cellulitis of right leg: Plan: This is a 76-year-old female with PMH of chronic diastolic heart failure, left bundle branch block, hypertension, CKD 3, mood disorder, IBS and other medical problems listed below who presents with daughter for concerns of confusion and decreased oral intake was found to have sepsis 2/2 RLE cellulitis and COVID-19 infection. Febrile at 39.5 C, leukocytosis of 19.8 2K, lactate within normal range Cefepime started in ED. Continue, added daptomycin for broad-spectrum coverage Foot x-ray ordered to evaluate for heel osteomyelitis - no osteo 05/24 WBC down to 12K, afebrile now 03/25 RLE erythema improved (3) COVID-19: Plan: Saturating without issue on room air. No shortness of breath Isolation precautions (4) CHF (congestive heart failure): Plan: Chest x-ray with no acute process. Resume lasix as appropriate EPEC diarrhea on stool studies - pt attributed diarrhea to IBS -reports stools improved -pt on Abx for cellulitis, as above (5) JW (acute kidney injury): Plan: Cr 1.3 (baseline ~0.83) in setting of poor p.o. intake, infection Monitor renal function with daily BMP Holding spironolactone, lisinopril, lasix initially Cr improved at 1.2 lasix to be resumed for LE edema, hx of CHF (6) Mood disorder: Plan: Continue Xanax as needed, bupropion (7) Hypokalemia: Plan: Replete and monitor (8) Hypertension: Plan: Normotensive. Continue carvedilol with parameters, holding lisinopril due to JW (9) Hyponatremia: Plan: Pseudohyponatremia given elevated bs on admission Na 136 Cont. to monitor (10) Hyperglycemia: Plan: Denies formal dx of DM II but BSG >300. Current A1c 6.6%. Given SQ Lantus HS, SSI AC HS DVT Ppx: SQ heparin Code status: FULL PCP: Dr. Ruiz Dispo: Admitted to PCU Admission and Anticipated Discharge Date Admission Date: March 22, 2022 Subjective Pt seen in follow-up of right lower extremity cellulitis, positive COVID-19, EPEC diarrhea Reports feeling somewhat better. Has some loose stools but much improved. Reports no stools this AM yet, and stools overnight. No chest pain or shortness of breath, no cough. No abdominal pain. Review of Systems Review of Systems: All systems reviewed & are unremarkable except as noted in Subjective Physical Exam Physical Exam: Constitutional:I obese F in NAD Eyes: PERRL, EOMI, conju nctivae normal, an icteric sclerae ENMT: external ear and n ose normal, oropha rynx normal Neck: + thick neck Respiratory: normal respiratory effort, lungs jignesh ar to auscultation Cardiovascular:I RRR, no murmur, no edema Chest (Breasts): Chest: normal insp ection of chest Gastrointestinal ( Abdomen): normal bowel sound s, soft, nontender Musculoskeletal: extremities motor strength 5/5 Skin: + erythema RLE e rythema Neurologic: PERRL, EOMI, no fa ce palsy, no dysar thria,moves extrem ities Psychiatric: A+Ox3, euthymic af fect Results & Data Results & Data ([facility]) Vital Signs (Past 12 Hours) Vital Signs Temp Pulse Pulse Resp BP Pulse Ox O2 Del Method 03/25/22 07:37 37.1 C 84 18 122/65 95 Room Air 03/25/22 03:50 36.8 C 83 18 115/67 94 Room Air 03/25/22 00:05 77 03/24/22 22:26 37.1 C 76 18 128/67 96 Room Air Medications Administered Current Inpatient Medications Acetaminophen (Acetaminophen 325 Mg Tab) 650 mg PO Q4H PRN PRN Reason: Pain or Fever Stop: 04/21/22 21:15 Last Admin: 03/23/22 16:32 Dose: 650 mg Albuterol (Albuterol 0.083% Nebu Soln 3 Ml Vial) 2.5 mg INH Q4H PRN; Protocol PRN Reason: Wheezing Stop: 04/21/22 21:15 Allopurinol (Allopurinol 300 Mg Tab) 300 mg PO QAM HUMAIRA Stop: 04/22/22 08:59 Last Admin: 03/24/22 08:03 Dose: 300 mg Alprazolam (Alprazolam 0.25 Mg Tablet) 0.25 mg PO TID PRN PRN Reason: Anxiety/insomnia Stop: 04/21/22 21:15 Aspirin (Aspirin 81 Mg Ectab) 81 mg PO DAILY HUMAIRA Stop: 04/22/22 08:59 Last Admin: 03/24/22 08:03 Dose: 81 mg Bupropion HCl (Bupropion Xl 150 Mg Tabcr) 150 mg PO DAILY HUMAIRA Stop: 04/22/22 08:59 Last Admin: 03/24/22 08:02 Dose: 150 mg Carvedilol (Carvedilol 12.5 Mg Tab) 12.5 mg PO BID HUMAIRA Stop: 04/21/22 21:15 Last Admin: 03/24/22 20:53 Dose: 12.5 mg Dextrose (Dextrose 50% 50 Ml Syringe) 25 - 50 ml IV UD PRN; Protocol PRN Reason: Hypoglycemia Protocol Stop: 04/21/22 21:15 Famotidine (Famotidine 40 Mg Tablet) 40 mg PO BID HUMAIRA Stop: 04/21/22 21:15 Last Admin: 03/24/22 20:56 Dose: 40 mg Furosemide (Furosemide 40 Mg Tab) 40 mg PO BID HUMAIRA Stop: 04/21/22 21:15 Last Admin: 03/22/22 22:24 Dose: 40 mg Gabapentin (Gabapentin 600 Mg Tab) 600 mg PO BID HUMAIRA Stop: 04/21/22 21:15 Last Admin: 03/24/22 20:56 Dose: 600 mg Gabapentin (Gabapentin 300 Mg Cap) 300 mg PO DAILY@1200 [facility] Stop: 04/22/22 11:59 Last Admin: 03/24/22 12:30 Dose: 300 mg Glucagon (Glucagon For Inj 1 Mg Vial) 1 mg SQ UD PRN; Protocol PRN Reason: Hypoglycemia Protocol Stop: 04/21/22 21:15 Glucose (Glucose 40% Gel 15 Gm Tube) 15 - 30 gm PO UD PRN; Protocol PRN Reason: Hypoglycemia Protocol Stop: 04/21/22 21:15 Glucose (Glucose 10 Tab/Tube) 4 - 8 tab PO UD PRN; Protocol PRN Reason: Hypoglycemia Treatment Stop: 04/21/22 21:15 Heparin Sodium (Porcine) (Heparin Sod 5,000 Unit/0.5 Ml Vial) 5,000 units SQ Q8 HUMAIRA Stop: 04/21/22 21:59 Last Admin: 03/25/22 05:57 Dose: 5,000 units Daptomycin 300 mg/ Syringe 6 mls @ 3 mls/min IV Q24H HUMAIRA; Protocol Stop: 03/29/22 19:59 Last Admin: 03/24/22 19:45 Dose: 3 mls/min Cefepime HCl 2,000 mg/ Syringe 20 mls @ 5 mls/min IV Q12H [facility]; Protocol Stop: 03/29/22 09:03 Last Admin: 03/24/22 20:48 Dose: 5 mls/min Insulin Aspart (Insulin Aspart Per Unit) 0 units SC ACHS [facility] Stop: 04/21/22 21:15 Last Admin: 03/24/22 20:56 Dose: Not Given Lactobacillus Acidophilus (Advanced Probiotic 1250 Mg Capsule) 2 cap PO DAILY [facility] Stop: 04/22/22 10:14 Last Admin: 03/24/22 08:03 Dose: 2 cap Lisinopril (Lisinopril 2.5 Mg Tab) 2.5 mg PO QAM [facility] Stop: 04/22/22 08:59 Mirtazapine (Mirtazapine Tab 15 Mg Tab) 30 mg PO HS [facility] Stop: 04/21/22 21:15 Last Admin: 03/24/22 20:55 Dose: 30 mg Miscellaneous (Carbohydrates For Hypoglycemia ) 15 - 30 gm PO UD PRN PRN Reason: Hypoglycemia Protocol Stop: 04/21/22 21:15 Ondansetron HCl (Ondansetron Inj 2 Mg/Ml 2 Ml Vial) 4 mg IV Q6H PRN PRN Reason: Nausea Stop: 04/21/22 21:15 Polyethylene Glycol (Polyethylene (Miralax) 17 Gm Pack) 17 gm PO DAILY PRN PRN Reason: Constipation Stop: 04/21/22 21:15 Potassium Chloride (Potassium Chloride Crtab 20 Meq Tabcr) 20 meq PO BID [facility] Stop: 04/21/22 21:15 Last Admin: 03/24/22 20:55 Dose: 20 meq Spironolactone (Spironolactone 25 Mg Tab) 25 mg PO QAM [facility] Stop: 04/22/22 08:59 Venlafaxine HCl (Venlafaxine Hcl Xr 150 Mg Capxr) 150 mg PO QAM [facility] Stop: 04/22/22 08:59 Last Admin: 03/24/22 08:02 Dose: 150 mg
[2022-03-25] MEDS: INSULIN ASPART PER UNIT SC SCH ×4 (09:37→19:55)
[2022-03-25] MEDS: allopurinoL 300 MG TAB PO SCH (09:54)
[2022-03-25] MEDS: POTASSIUM CHLORIDE CRTAB 20 MEQ TABCR PO SCH ×2 (09:54→20:07)
[2022-03-25] MEDS: FAMOTIDINE 40 MG TABLET PO SCH ×2 (09:54→20:06)
[2022-03-25] MEDS: buPROPion XL 150 MG TABCR PO SCH (09:54)
[2022-03-25] MEDS: carvediloL 12.5 MG TAB PO SCH ×2 (09:54→20:05)
[2022-03-25] MEDS: GABAPENTIN 600 MG TAB PO SCH ×2 (09:54→20:06)
[2022-03-25] MEDS: SPIRONOLACTONE 25 MG TAB PO SCH (09:55)
[2022-03-25] MEDS: VENLAFAXINE HCL XR 150 MG CAPXR PO SCH (09:55)
[2022-03-25] MEDS: ADVANCED PROBIOTIC 1250 MG CAPSULE PO SCH (09:55)
[2022-03-25] MEDS: FUROSEMIDE 40 MG TAB PO SCH ×2 (09:55→20:06)
[2022-03-25] MEDS: ASPIRIN 81 MG ECTAB PO SCH (09:55)
[2022-03-25] MEDS: CEFEPIME 2,000 MG in SYRINGE 0 ML IV SCH ×2 (10:04→20:04)
[2022-03-25 11:35] LABS: Hematocrit (blood only) 33.5 % (34.1-44.9); Hemoglobin 10.9 g/dl (12.0-16.0); Mean Corpuscular Hemoglobin 29.6 pg (25.0-34.0); Mean Corpuscular Hgb Conc 32.5 g/dL (32.0-36.0); Mean Platelet Volume 10.6 fL (9.4-12.3); Platelet Count 260 K/uL (130-400); RDW Coefficient of Variation 13.4 % (11.5-14.5); RDW Standard Deviation 44.8 fL (36.4-46.3); Red Blood Count 3.68 M/uL (3.93-5.22); White Blood Count 10.13 K/ul (4.8-10.8)
[2022-03-25 12:14] LABS: Calcium 9.1 mg/dl (8.5-10.1); Creatinine Clr Calc Pharmacy 52.2 ml/min; Est GFR (African American) 59.3 ml/min; Est GFR (Non-African American) 51.2 ml/min; Magnesium 2.1 mg/dl (1.7-2.4); Phosphorus 2.1 mg/dl (2.5-4.9); Potassium 4.4 mmol/L (3.5-5.1)
[2022-03-25] MEDS: GABAPENTIN 300 MG CAP PO SCH (13:07)
[2022-03-25] MEDS: DAPTOmycin 300 MG in SYRINGE 0 ML IV SCH (20:03)
[2022-03-25] MEDS: MIRTAZAPINE TAB 15 MG TAB PO SCH (20:07)
[2022-03-25] MEDS ORDERED: SODIUM CHLORIDE 0.9% 1000ML 1,000 ML IV ONE (23:50)
[2022-03-26] MEDS: HEPARIN SOD 5,000 UNIT/0.5 ML VIAL SQ SCH ×3 (05:46→21:00)
[2022-03-26] MEDS: INSULIN ASPART PER UNIT SC SCH ×4 (09:38→20:18)
[2022-03-26] MEDS: CEFEPIME 2,000 MG in SYRINGE 0 ML IV SCH (09:55)
[2022-03-26] MEDS: ADVANCED PROBIOTIC 1250 MG CAPSULE PO SCH (09:55)
[2022-03-26] MEDS: POTASSIUM CHLORIDE CRTAB 20 MEQ TABCR PO SCH ×2 (09:55→20:23)
[2022-03-26] MEDS: carvediloL 12.5 MG TAB PO SCH ×2 (09:56→20:15)
[2022-03-26] MEDS: FAMOTIDINE 40 MG TABLET PO SCH ×2 (09:56→20:21)
[2022-03-26] MEDS: FUROSEMIDE 40 MG TAB PO SCH ×2 (09:56→20:22)
[2022-03-26] MEDS: buPROPion XL 150 MG TABCR PO SCH (09:56)
[2022-03-26] MEDS: allopurinoL 300 MG TAB PO SCH (09:57)
[2022-03-26] MEDS: VENLAFAXINE HCL XR 150 MG CAPXR PO SCH (09:57)
[2022-03-26] MEDS: ASPIRIN 81 MG ECTAB PO SCH (09:57)
[2022-03-26] MEDS: SPIRONOLACTONE 25 MG TAB PO SCH (09:57)
[2022-03-26] MEDS: GABAPENTIN 600 MG TAB PO SCH ×2 (09:57→20:23)
--- NOTE | 2022-03-26 11:24 | Ultrasound Report ---
US venous doppler LE RT HISTORY: 76 years-old Female pls r/o DVT acute pain and swelling of the right lower extremity COMPARISON: None TECHNIQUE: Multiple real-time sonographic images of the right lower extremity deep venous structures were obtained assessing grayscale appearance, color and spectral flow. FINDINGS: Normal flow, compressibility, phasicity and augmentation. Subcutaneous edema. Limited visualization o f the calf veins. IMPRESSION: No sonographic evidence of deep venous thrombosis. ACT 112: Negative or not required by law. The above report was generated using voice recognition software. It may contain grammatical, syntax o r spelling errors. Electronically signed by: Michael Baca M.D. 03/26/2022 11:23 AM
[2022-03-26] MEDS: GABAPENTIN 300 MG CAP PO SCH (12:45)
[2022-03-26 13:13] LABS: Hematocrit (blood only) 35.7 % (34.1-44.9); Hemoglobin 11.6 g/dl (12.0-16.0); Mean Corpuscular Hemoglobin 29.6 pg (25.0-34.0); Mean Corpuscular Hgb Conc 32.5 g/dL (32.0-36.0); Mean Corpuscular Volume 91.1 fL (80.0-100.0); Mean Platelet Volume 10.4 fL (9.4-12.3); Platelet Count 347 K/uL (130-400); RDW Coefficient of Variation 13.4 % (11.5-14.5); RDW Standard Deviation 44.4 fL (36.4-46.3); Red Blood Count 3.92 M/uL (3.93-5.22); White Blood Count 11.81 K/ul (4.8-10.8)
[2022-03-26 13:21] LABS: BUN Creatinine Ratio 20.2 (10-20); Calcium 9.3 mg/dl (8.5-10.1); Creatinine Clr Calc Pharmacy 51.5 ml/min; Est GFR (Non-African American) 51.8 ml/min; Magnesium 2.1 mg/dl (1.7-2.4); Phosphorus 2.3 mg/dl (2.5-4.9); Potassium 4.2 mmol/L (3.5-5.1)
[2022-03-26] MEDS: MIRTAZAPINE TAB 15 MG TAB PO SCH (20:22)
[2022-03-26] MEDS: DAPTOmycin 300 MG in SYRINGE 0 ML IV SCH (20:22)
[2022-03-26] MEDS: ceFAZolin 2000MG 2,000 MG/15 ML SYR IV SCH (21:00)
--- NOTE | 2022-03-26 22:14 | Hospitalist Progress Note ---
Date of Service March 26, 2022 Assessment & Plan (1) Sepsis: (2) Cellulitis of right leg: Plan: This is a 76-year-old female with PMH of chronic diastolic heart failure, left bundle branch block, hypertension, CKD 3, mood disorder, IBS and other medical problems listed below who presents with daughter for concerns of confusion and decreased oral intake was found to have sepsis 2/2 RLE cellulitis and COVID-19 infection. Febrile at 39.5 C, leukocytosis of 19.8 2K,on admission Cefepime started in ED. Continued, and added daptomycin for broad-spectrum coverage, initially Foot x-ray ordered to evaluate for heel osteomyelitis - no osteo Doppler obtained to r/o DVT - no DVT 03/24 WBC down to 12K, afebrile now 03/25 RLE erythema improved 03/26 leg still erythematous and w/ edema however seems improved. Encouraged RLE elevation. Pt has been afebrile and WBC down to 10-11K. Switch IV abx to cefazolin cont. to closely monitor (3) COVID-19: Plan: Saturating without issue on room air. No shortness of breath Isolation precautions (4) CHF (congestive heart failure): Plan: Chest x-ray with no acute process. Resume lasix as appropriate EPEC diarrhea on stool studies - pt attributed diarrhea to IBS -reports stools improved -pt on Abx for cellulitis, as above (5) JW (acute kidney injury): Plan: Cr 1.3 (baseline ~0.83) in setting of poor p.o. intake, infection Monitor renal function with daily BMP Holding spironolactone, lisinopril, lasix initially Cr improved at 1.2 lasix resumed for LE edema, hx of CHF Now Cr down to 1.0 - resume lisinopril (6) Mood disorder: Plan: Continue Xanax as needed, bupropion (7) Hypokalemia: Plan: Replete and monitor (8) Hypertension: Plan: Normotensive. Continue carvedilol with parameters, lisinopril (9) Hyponatremia: Plan: Pseudohyponatremia given elevated bs on admission Na 138 Cont. to monitor (10) Hyperglycemia: Plan: Denies formal dx of DM II but BSG >300. Current A1c 6.6%. Given SQ Lantus HS, SSI AC HS DVT Ppx: SQ heparin Code status: FULL PCP: Dr. Ruiz Dispo: Admitted to PCU Admission and Anticipated Discharge Date Admission Date: March 22, 2022 Subjective Pt seen in follow-up of right lower extremity cellulitis, positive COVID-19, EPEC diarrhea Reports feeling better. On and off loose stools. No chest pain or shortness of breath, minimal cough. No abdominal pain, n/v. Leg less edematous and less erythematous. Encouraged to keep the leg elevated to minimize edema. Obtained doppler to r/o DVT. Daughter updated over the phone. Review of Systems Review of Systems: All systems reviewed & are unremarkable except as noted in Subjective Physical Exam Physical Exam: Constitutional:I obese F in NAD Eyes: PERRL, EOMI, conju nctivae normal, an icteric sclerae ENMT: external ear and n ose normal, oropha rynx normal Neck: + thick neck Respiratory: normal respiratory effort, lungs jignesh ar to auscultation Cardiovascular:I RRR, no murmur, no edema Chest (Breasts): Chest: normal insp ection of chest Gastrointestinal ( Abdomen): normal bowel sound s, soft, nontender Musculoskeletal: extremities motor strength 5/5 Skin: + erythema RLE e rythema Neurologic: PERRL, EOMI, no fa ce palsy, no dysar thria,moves extrem ities Psychiatric: A+Ox3, euthymic af fect Results & Data Results & Data ([facility]) Vital Signs (Past 12 Hours) Vital Signs Temp Pulse Pulse Resp BP Pulse Ox O2 Del Method 03/26/22 20:10 37.5 C 79 18 127/65 93 Room Air 03/26/22 15:23 37.0 C 78 18 136/67 96 Room Air 03/26/22 11:48 36.9 C 73 18 121/68 94 Room Air 03/26/22 11:29 75 03/26/22 11:29 Room Air Laboratory Results 03/26/22 03/26/22 03/26/22 Range/Units 20:09 16:50 12:38 WBC (4.8-10.8) K/ul RBC (3.93-5.22) M/uL Hgb (12.0-16.0) g/dl Hct (34.1-44.9) % MCV (80.0-100.0) fL MCH (25.0-34.0) pg MCHC (32.0-36.0) g/dL RDW Std Deviation (36.4-46.3) fL RDW Coeff of Marj (11.5-14.5) % Plt Count (130-400) K/uL MPV (9.4-12.3) fL Sodium 138 (136-145) mmol/L Potassium 4.2 (3.5-5.1) mmol/L Chloride 103 (98-107) mmol/L Carbon Dioxide 28 (21-32) mmol/L Anion Gap 7 (3-11) BUN 21 (6-23) mg/dl Creatinine 1.04 (0.6-1.2) mg/dl Est Cr Clr Drug Dosing 51.5 ml/min Est GFR ( Amer) 60.0 ml/min Est GFR (Non-Af Amer) 51.8 ml/min BUN/Creatinine Ratio 20.2 H (10-20) Glucose 136 H (70-99(Fasting)) mg/dl POC Glucose 128 H 96 (70-99) mg/dl Calcium 9.3 (8.5-10.1) mg/dl Phosphorus 2.3 L (2.5-4.9) mg/dl Magnesium 2.1 (1.7-2.4) mg/dl 03/26/22 03/26/22 03/26/22 Range/Units 12:38 11:43 07:49 WBC 11.81 H (4.8-10.8) K/ul RBC 3.92 L (3.93-5.22) M/uL Hgb 11.6 L (12.0-16.0) g/dl Hct 35.7 (34.1-44.9) % MCV 91.1 (80.0-100.0) fL MCH 29.6 (25.0-34.0) pg MCHC 32.5 (32.0-36.0) g/dL RDW Std Deviation 44.4 (36.4-46.3) fL RDW Coeff of Marj 13.4 (11.5-14.5) % Plt Count 347 (130-400) K/uL MPV 10.4 (9.4-12.3) fL Sodium (136-145) mmol/L Potassium (3.5-5.1) mmol/L Chloride (98-107) mmol/L Carbon Dioxide (21-32) mmol/L Anion Gap (3-11) BUN (6-23) mg/dl Creatinine (0.6-1.2) mg/dl Est Cr Clr Drug Dosing ml/min Est GFR ( Amer) ml/min Est GFR (Non-Af Amer) ml/min BUN/Creatinine Ratio (10-20) Glucose (70-99(Fasting)) mg/dl POC Glucose 133 H 125 H (70-99) mg/dl Calcium (8.5-10.1) mg/dl Phosphorus (2.5-4.9) mg/dl Magnesium (1.7-2.4) mg/dl Medications Administered Current Inpatient Medications Acetaminophen (Acetaminophen 325 Mg Tab) 650 mg PO Q4H PRN PRN Reason: Pain or Fever Stop: 04/21/22 21:15 Last Admin: 03/23/22 16:32 Dose: 650 mg Albuterol (Albuterol 0.083% Nebu Soln 3 Ml Vial) 2.5 mg INH Q4H PRN; Protocol PRN Reason: Wheezing Stop: 04/21/22 21:15 Allopurinol (Allopurinol 300 Mg Tab) 300 mg PO QAM HUMAIRA Stop: 04/22/22 08:59 Last Admin: 03/26/22 09:57 Dose: 300 mg Alprazolam (Alprazolam 0.25 Mg Tablet) 0.25 mg PO TID PRN PRN Reason: Anxiety/insomnia Stop: 04/21/22 21:15 Aspirin (Aspirin 81 Mg Ectab) 81 mg PO DAILY HUMAIRA Stop: 04/22/22 08:59 Last Admin: 03/26/22 09:57 Dose: 81 mg Bupropion HCl (Bupropion Xl 150 Mg Tabcr) 150 mg PO DAILY HUMAIRA Stop: 04/22/22 08:59 Last Admin: 03/26/22 09:56 Dose: 150 mg Carvedilol (Carvedilol 12.5 Mg Tab) 12.5 mg PO BID HUMAIRA Stop: 04/21/22 21:15 Last Admin: 03/26/22 20:15 Dose: 12.5 mg Dextrose (Dextrose 50% 50 Ml Syringe) 25 - 50 ml IV UD PRN; Protocol PRN Reason: Hypoglycemia Protocol Stop: 04/21/22 21:15 Famotidine (Famotidine 40 Mg Tablet) 40 mg PO BID HUMAIRA Stop: 04/21/22 21:15 Last Admin: 03/26/22 20:21 Dose: 40 mg Furosemide (Furosemide 40 Mg Tab) 40 mg PO BID HUMAIRA Stop: 04/21/22 21:15 Last Admin: 03/26/22 20:22 Dose: 40 mg Gabapentin (Gabapentin 600 Mg Tab) 600 mg PO BID HUMAIRA Stop: 04/21/22 21:15 Last Admin: 03/26/22 20:23 Dose: 600 mg Gabapentin (Gabapentin 300 Mg Cap) 300 mg PO DAILY@1200 HUMAIRA Stop: 04/22/22 11:59 Last Admin: 03/26/22 12:45 Dose: 300 mg Glucagon (Glucagon For Inj 1 Mg Vial) 1 mg SQ UD PRN; Protocol PRN Reason: Hypoglycemia Protocol Stop: 04/21/22 21:15 Glucose (Glucose 40% Gel 15 Gm Tube) 15 - 30 gm PO UD PRN; Protocol PRN Reason: Hypoglycemia Protocol Stop: 04/21/22 21:15 Glucose (Glucose 10 Tab/Tube) 4 - 8 tab PO UD PRN; Protocol PRN Reason: Hypoglycemia Treatment Stop: 04/21/22 21:15 Heparin Sodium (Porcine) (Heparin Sod 5,000 Unit/0.5 Ml Vial) 5,000 units SQ Q8 HUMAIRA Stop: 04/21/22 21:59 Last Admin: 03/26/22 21:00 Dose: 5,000 units Cefazolin Sodium (Ancef 2000mg) 2,000 mg in 15 mls @ 3.75 mls/min IV Q8H HUMAIRA Stop: 04/02/22 20:14 Insulin Aspart (Insulin Aspart Per Unit) 0 units SC ACHS HUMAIRA Stop: 04/21/22 21:15 Last Admin: 03/26/22 20:18 Dose: Not Given Lactobacillus Acidophilus (Advanced Probiotic 1250 Mg Capsule) 2 cap PO DAILY HUMAIRA Stop: 04/22/22 10:14 Last Admin: 03/26/22 09:55 Dose: 2 cap Lisinopril (Lisinopril 2.5 Mg Tab) 2.5 mg PO QAM HUMAIRA Stop: 04/22/22 08:59 Mirtazapine (Mirtazapine Tab 15 Mg Tab) 30 mg PO HS HUMAIRA Stop: 04/21/22 21:15 Last Admin: 03/26/22 20:22 Dose: 30 mg Miscellaneous (Carbohydrates For Hypoglycemia ) 15 - 30 gm PO UD PRN PRN Reason: Hypoglycemia Protocol Stop: 04/21/22 21:15 Ondansetron HCl (Ondansetron Inj 2 Mg/Ml 2 Ml Vial) 4 mg IV Q6H PRN PRN Reason: Nausea Stop: 04/21/22 21:15 Polyethylene Glycol (Polyethylene (Miralax) 17 Gm Pack) 17 gm PO DAILY PRN PRN Reason: Constipation Stop: 04/21/22 21:15 Potassium Chloride (Potassium Chloride Crtab 20 Meq Tabcr) 20 meq PO BID HUMAIRA Stop: 04/21/22 21:15 Last Admin: 03/26/22 20:23 Dose: 20 meq Spironolactone (Spironolactone 25 Mg Tab) 25 mg PO QAM HUMAIRA Stop: 04/22/22 08:59 Last Admin: 03/26/22 09:57 Dose: 25 mg Venlafaxine HCl (Venlafaxine Hcl Xr 150 Mg Capxr) 150 mg PO QAM [facility] Stop: 04/22/22 08:59 Last Admin: 03/26/22 09:57 Dose: 150 mg
[2022-03-27] MEDS: ceFAZolin 2000MG 2,000 MG/15 ML SYR IV SCH ×2 (00:41→06:20)
[2022-03-27] MEDS: HEPARIN SOD 5,000 UNIT/0.5 ML VIAL SQ SCH (06:20)
[2022-03-27 06:37] LABS: Hematocrit (blood only) 31.1 % (34.1-44.9); Mean Corpuscular Hemoglobin 29.5 pg (25.0-34.0); Mean Corpuscular Hgb Conc 32.2 g/dL (32.0-36.0); Mean Corpuscular Volume 91.7 fL (80.0-100.0); Mean Platelet Volume 10.3 fL (9.4-12.3); Platelet Count 284 K/uL (130-400); RDW Coefficient of Variation 13.2 % (11.5-14.5); RDW Standard Deviation 44.6 fL (36.4-46.3); Red Blood Count 3.39 M/uL (3.93-5.22); White Blood Count 9.61 K/ul (4.8-10.8)
[2022-03-27 06:59] LABS: BUN Creatinine Ratio 19.4 (10-20); Calcium 8.7 mg/dl (8.5-10.1); Creatinine Clr Calc Pharmacy 51.6 ml/min; Est GFR (African American) 60.7 ml/min; Est GFR (Non-African American) 52.4 ml/min; Phosphorus 2.3 mg/dl (2.5-4.9); Potassium 3.9 mmol/L (3.5-5.1)
[2022-03-27] MEDS: INSULIN ASPART PER UNIT SC SCH (09:38)
[2022-03-27] MEDS: buPROPion XL 150 MG TABCR PO SCH (10:45)
[2022-03-27] MEDS: FUROSEMIDE 40 MG TAB PO SCH (10:45)
[2022-03-27] MEDS: carvediloL 12.5 MG TAB PO SCH (10:45)
[2022-03-27] MEDS: POTASSIUM CHLORIDE CRTAB 20 MEQ TABCR PO SCH (10:46)
[2022-03-27] MEDS: FAMOTIDINE 40 MG TABLET PO SCH (10:46)
[2022-03-27] MEDS: ADVANCED PROBIOTIC 1250 MG CAPSULE PO SCH (10:46)
[2022-03-27] MEDS: allopurinoL 300 MG TAB PO SCH (10:46)
[2022-03-27] MEDS: GABAPENTIN 600 MG TAB PO SCH (10:46)
[2022-03-27] MEDS: ASPIRIN 81 MG ECTAB PO SCH (10:47)
[2022-03-27] MEDS: SPIRONOLACTONE 25 MG TAB PO SCH (10:47)
[2022-03-27] MEDS: VENLAFAXINE HCL XR 150 MG CAPXR PO SCH (10:47)
--- NOTE | 2022-03-27 18:17 | Discharge Summary ---
Date of Service March 27, 2022 Admission HPI Per Admitting Provider This is a 76-year-old female with PMH of chronic diastolic heart failure, left bundle branch block, hypertension, CKD 3, mood disorder, IBS and other medical problems listed below who presents with daughter for concerns of confusion and decreased oral intake. Seemed lethargic and was not clear on the time, which is unusual for her. When daughter visited today, patient was having trouble getting out of bed on her own. Unsure when she developed redness and pain in lower right leg. Does have some discomfort in upper R thigh from [place] jumping on her. No lightheadedness, CP, SOB, N/V, abdominal pain, dysuria, diarrhea or constipation. Lives with daughter. Admission Exam Per Admitting Provider On physical exam she is lying in bed in no acute distress, she is able to answer simple questions appropriately. She is hard of hearing though. Lungs are clear to auscultation bilaterally without any wheezing rhonchi crackles noted. Heart sounds regular. Abdomen soft nontender nondistended. Significant erythema up to her R knee. Also small wound on her right heel noted. Skin is erythematous and warm, and is also somewhat tender to touch. Principal Diagnosis Sepsis Cellulitis of right leg COVID-19 infection JW Type 2 diabetes mellitus Discharge Exam Constitutional: WD/WN, vitals as above, NAD, sitting up in bed, pleasant, conversing easily Respiratory: normal respiratory effort, lungs clear to auscultation, no wheeze, rales, rhonchi. Normal insp/exp effort, no accessory muscle use Cardiovascular: RRR, no murmur, no edema Vessels: no JVD or carotid bruit Chest: normal inspection of chest Abdomen: normal bowel sounds, soft, nontender, no hepatosplenomegaly Musculoskeletal: no cyanosis or clubbing, extremities motor strength 5/5 Skin: Redness, swelling and erythema present on right lower extremity up to calf; patient report improvement in overall erythema and swelling. Neurologic: PERRL, EOMI, accommodation nl, no face palsy, no dysarthria CN's II- XI intact bilaterally and moves all extremities Psychiatric: A+Ox3, euthymic affect Lymphatic: no cervical or axillary lymphadenopathy : deferred Discharge Data Allergies Allergy/AdvReac Type Severity Reaction Status Date / Time blue dye Allergy Unknown itchy;kevoll Verified 03/22/22 16:15 en chlorhexidine Allergy Unknown ITCHINESS Verified 02/07/20 13:41 Penicillins Allergy Unknown HIVES Verified 03/22/22 16:15 Consultations 03/22/22 18:30 ED Decision to Admit Stat Ordered Studies 03/26/22 10:25 US venous doppler LE RT Urgent Diabetes Follow up Diabetes Follow-up Needed for Newly Diagnosed Diabetes Hospital Course (1) Sepsis: (2) Cellulitis of right leg: This is a 76-year-old female with PMH of chronic diastolic heart failure, left bundle branch block, hypertension, CKD 3, mood disorder, IBS Switch IV abx to cefazolin cont. to closely monitor (3) COVID-19: Saturating without issue on room air. No shortness of breath Isolation precautions (4) CHF (congestive heart failure): Chest x-ray with no acute process. Resume lasix as appropriate EPEC diarrhea on stool studies - pt attributed diarrhea to IBS -reports stools improved -pt on Abx for cellulitis, as above (5) JW (acute kidney injury): Cr 1.3 (baseline ~0.83) in setting of poor p.o. intake, infection Monitor renal function with daily BMP Holding spironolactone, lisinopril, lasix initially Cr improved at 1.2 lasix resumed for LE edema, hx of CHF Now Cr down to 1.0 - resume lisinopril (6) Mood disorder: Continue Xanax as needed, bupropion (7) Hypokalemia: Replete and monitor (8) Hypertension: Normotensive. Continue carvedilol with parameters, lisinopril (9) Hyponatremia: Pseudohyponatremia given elevated bs on admission Na 138 Cont. to monitor (10) Hyperglycemia: Denies formal dx of DM II but BSG >300. Current A1c 6.6%. Given SQ Lantus HS, SSI AC HS DVT Ppx: SQ heparin Code status: FULL PCP: Dr. Ruiz Dispo: Admitted to PCU Plan This is a 76-year-old female with PMH of chronic diastolic heart failure, left bundle branch block, hypertension, CKD 3, mood disorder, IBS presented to to the ED due to concern for confusion and decreased oral intake. She was febrile to 39.5 C on admission. Her leukocytosis count was 19.8. Patient was found to have right lower extremity cellulitis. She was also found to have COVID-19 infection. For the right lower leg cellulitis; she was started on cefepime; switched over to Dapto and eventually to cefazolin. Her erythema, swelling continued to improve throughout the hospitalization. Foot x-ray was done which did not show any osteomyelitis. Patient was discharged on cephalexin and doxycycline for 5 more days to complete therapy. She was recommended to elevate her leg. For COVID-19 infection, chest x-ray was done which did not show any acute abnormality. Patient remained in room air throughout the hospitalization. No specific COVID-19 treatment was given. Patient's stool PCR was positive for EPEC E. coli; patient improved on symptomatic treatment. For the new onset type 2 diabetes mellitus, patient was prescribed metformin 500 mg twice daily. She was asked to follow-up with her primary care doctor for long-term management of type 2 diabetes mellitus. Instructions were given to her daughter over the phone. Patient will have outpatient follow-up next week. Total Time Total Time Spent Total Time Spent (In Minutes): 40 Total Time Includes: Examination of the Patient, Discharge Planning, Medication Reconciliation, Communication With Other Providers and Other Discharge Plan Discharge Items Patient Disposition: Home - Self-Care Reason For Visit: SEPSIS 2/2 RLE CELLULITIS, COVID Discharge Diagnosis: 1) RLE cellultis 2) Covid 19 Infection Activity: Resume your previous activity Activity Comment: Keep your right Leg elevated Non-emergency contact: Primary Care Provider Call non-emergency contact if: you have any medication questions Follow-up/Referrals: Bradley Ruiz MD [Primary Care Provider] - (Date & Time 04/03/2022 3:40 PM Provider Bradley Ruiz MD Department [facility] ) Diet: Carb Consistent or DM2 Addtl Attending Provider Instructions: You were admitted to the hospital with Right LE cellulitis. You received iv antiboitics during the hospitalization. You are placed on following antibiotics to be taken for 5 more days: 1) Cephalexin 500mg twice daily 2) Doxycycline 100mg twice daily. You were also found to have Covid 19 infection. Your CXR doesn't show any pneumonia. Please wear mask around other people for 5 more days. You were found to have E. coli in your stool. Its self limiting. Please continue hydration with water. You are found to have Type 2 DM. Your A1c is 6.6%. You are started on Metformin 500mg twice daily. Please follow up with PCP regarding half-way care for your diabetes. We will set up follow up with your PCP for sometime next week. Pending Studies at Discharge: No Stand-Alone Forms: My [facility], Smoking Cessation Medications and DC Order Prescriptions: New cephalexin 500 mg capsule 500 mg PO BID 5 Days Qty: 10 0RF doxycycline hyclate 100 mg capsule 100 mg PO BID 5 Days Qty: 10 0RF metformin 500 mg tablet 500 mg PO BID Qty: 60 0RF Continued furosemide 40 mg Tablet 40 mg PO [facility] venlafaxine 75 mg Capsule,Extended Release 24hr 150 mg PO QAM gabapentin 600 mg Tablet 300 - 600 mg PO UD Rx Instructions: take 1 tablet in the morning,1/2 tablet in the afternoon and 1 tablet at bedtime carvedilol 12.5 mg Tablet 12.5 mg PO BID aspirin 81 mg Tablet,Delayed Release (Dr/Ec) 81 mg PO DAILY spironolactone 25 mg Tablet 25 mg PO QAM alprazolam 0.25 mg Tablet 0.25 mg PO TID PRN (Reason: Anxiety/insomnia) Rx Instructions: use in morning,noon,or evening for anxiety or insomnia mirtazapine 30 mg Tablet 30 mg PO HS allopurinol 300 mg Tablet 300 mg PO QAM lisinopril 2.5 mg Tablet 2.5 mg PO QAM famotidine 40 mg tablet 40 mg PO BID bupropion HCl 150 mg tablet extended release 24 hr 150 mg PO DAILY potassium chloride 20 mEq tablet,ER particles/crystals 20 meq PO [facility] albuterol sulfate 2.5 mg /3 mL (0.083 %) Solution For Nebulization 2.5 mg INHALATION Q4H PRN (Reason: Wheezing) calcium polycarbophil [FiberCon] 625 mg Tablet 2,500 mg PO UD Discharge Orders: Discharge Order (Routine); Ordered 03/27/22 Ordered By: Meño Cai/Other Patient Handouts: Healthy Meals for Diabetes, Diabetes: Meal Planning, Type 2 Diabetes Admission Data Admit Date/Time: 03/22/22 19:24 Attending Provider: Meño Jarvis Admit Provider: Chiki Reyna Primary Care Provider: Bradley Ruiz Other Providers: Chiki Reyna Other Interventions: Discharge Summary Assessment (RN) Last Done: 03/27/22 11:45
== END 2022-03-27 13:00 | disposition home or self-care (01) | DRG 871 ==
LOC: ED 15:38 → 2S 19:24 → SUATTDRO 19:24 → 2S 20:49